=== PATIENT | female | born 1980 | race Caucasian/White ===

== ENCOUNTER 2020-06-15 13:35 | Outpatient (REF) | payer OTHER, SELFPAY ==
--- NOTE | 2020-06-15 | MM_ITS ---
EXAMINATION: MM DIAGNOSTIC DIGITAL BREAST TOMOSYNTHESIS, BILATERAL US DIAGNOSTIC ULTRASOUND BREAST, BILATERAL CLINICAL INFORMATION: 40-year-old with small palpable nodule upper outer left breast. Clinical exam also notes palpable fullness 9:00 and 12:00 position right breast. Family history breast cancer in maternal aunt. No known prior mammography. Patient notes prior history benign right breast biopsy years ago. The lifetime risk of breast cancer based on the Tyrer-Cuzick Model is 15%. COMPARISON: None (current study represents initial baseline exam). TECHNIQUE: Digital breast tomosynthesis is performed in both the craniocaudal and mediolateral oblique views along with computer-aided detection (CAD). Synthesized 2D images are generated from the tomosynthesis. Ultrasound left breast is targeted to the area of clinical concern 2:00 to 3:00 position. Patient is able to point to area of concern at time of imaging. Ultrasound right breast is targeted to the upper outer quadrant. Patient notes no palpable abnormality at time of imaging the right breast. Old breast are imaged using grayscale imaging and color Doppler without and with harmonics. FINDINGS: The breasts are heterogeneously dense, which may obscure small masses (ACR BI-RADS breast composition Category c). There is a smooth circumscribed oval nodule close to skin upper outer left breast at site of palpable abnormality measuring 0.6 x 0.5 cm. The right breast has biopsy clip marker mid upper inner quadrant. There is no significant masses seen in either breast or architectural abnormality. There are no abnormal calcifications. The axilla and skin contours are unremarkable. There is no skin thickening or coarsening of the Chris's ligaments. Ultrasound left breast demonstrates simple cyst at site of palpable concern 2:00 position 3 cm from nipple measuring 0.7 x 0.5 x 0.4 cm. There is increased through-transmission of sound and no associated color flow. Ultrasound right breast shows a cyst with some fine peripheral layering calcification 10:00 position measuring approximately 0.7 x 0.6 cm. There is increased through-transmission of sound and no associated color flow. There is no other cystic or solid mass or architectural abnormality. No focal duct ectasia. Results are discussed with the patient at time of visit. Patient should be managed based on the clinical impression. If there is still clinical concern, further evaluation may be considered with surgical consult. Decision to proceed with biopsy should be based on clinical grounds and degree of clinical concern. IMPRESSION: 1. No mammographic evidence of malignancy. 2. Simple cyst upper outer left breast at site of palpable concern measuring 0.7 cm. 3. Cyst upper outer right breast with benign finding layering calcification 0.7 cm. ASSESSMENT: BI-RADS 2: Benign RECOMMENDATION: 1. Patient should be managed based on the clinical impression. 2. Otherwise, routine annual screening mammography. This patient's information was entered into a reminder system with a target due date for their next mammogram.
== END 2020-06-15 13:36 | disposition home or self-care (01) ==
LOC: HO.MAMMO 13:35
PROVIDERS: Visit Provider Advanced Practice Midwife
DX: N63.10 Unspecified lump in the right breast, unspecified quadrant (principal); N63.21 Unspecified lump in the left breast, upper outer quadrant
CPT/HCPCS: 76642; 77062; 77066; 78013

== ENCOUNTER 2020-06-24 14:10 | Outpatient (REF) | payer OTHER, SELFPAY ==
--- NOTE | 2020-06-24 14:16 | US_ITS ---
EXAMINATION: US PELVIS ULTRASOUND CLINICAL INFORMATION: 40-year-old with excessive and frequent menstruation. LMP 3 weeks ago. Prior history . COMPARISON: None TECHNIQUE: Ultrasound of the pelvis is performed using both transabdominal and transvaginal transducers along with Doppler. Transvaginal imaging is performed due to inadequate visualization transabdominally. FINDINGS: Uterus: The uterus is anteverted and measures 12.4 x 5.2 x 6.3 cm. The double wall endometrial thickness is normal at 8 mm. No visible endometrial polyp. There is an oval area of subtle altered echogenicity 2.0 x 1.9 x 1.9 cm lower anterior uterine segment adjacent to probable small scar. This may represent a small subserous fibroid. There is no submucous fibroid demonstrated. Adnexa: Both ovaries are visualized. There is normal color flow to the adnexa. There is no ovarian torsion. There is no pelvic ascites or fluid collection. Right ovary measures 3.1 x 1.9 x 3.0 cm. Left ovary measures 5.0 x 3.1 x 3.8 cm. There is a small hemorrhagic cyst within the left ovary measuring only 1.9 x 1.6 x 1.6 cm. IMPRESSION: 1. Suspect small subserous fibroid 2.0 cm lower anterior uterine segment adjacent to small scar. No submucous fibroid demonstrated. 2. Normal endometrial double wall thickness 8 mm. No visible endometrial polyp. 3. Small left intraovarian hemorrhagic cyst under 2 cm. No significant adnexal mass. No pelvic ascites.
== END 2020-06-24 14:11 | disposition home or self-care (01) ==
LOC: HO.HMGCX 14:10
PROVIDERS: Visit Provider Advanced Practice Midwife
DX: N92.0 Excessive and frequent menstruation with regular cycle (principal)
CPT/HCPCS: 76830; 76856

== ENCOUNTER 2021-07-11 13:44 | Outpatient (REF) | payer OTHER, SELFPAY ==
--- NOTE | ~2021-07-11 | MM_ITS ---
EXAMINATION: MM SCREENING DIGITAL BREAST TOMOSYNTHESIS, BILATERAL CLINICAL INFORMATION: Screening. Asymptomatic. The lifetime risk of breast cancer based on the Tyrer-Cuzick Model is 17%. COMPARISON: Mammography: 06/15/2020 (baseline); bilateral targeted breast ultrasound 06/15/2020. TECHNIQUE: Digital breast tomosynthesis is performed in both the craniocaudal and mediolateral oblique views along with computer-aided detection (CAD). Synthesized 2D images are generated from the tomosynthesis. FINDINGS: The breasts are extremely dense, which lowers the sensitivity of mammography (ACR BI-RADS breast composition Category d). Breast tissue composition borders on heterogeneously dense. Parenchymal pattern is similar to baseline exam. There is no significant mass or architectural abnormality or abnormal calcifications. Biopsy marker again seen mid 3:00 right breast. There is interval benign coarse calcification mid upper outer right breast. The axilla and skin contours are unremarkable. MM/MM tomosynthesis screening BI IMPRESSION: No significant changes from prior baseline exam. ASSESSMENT: BI-RADS 2: Benign RECOMMENDATION: Routine annual mammography screening. This patient's information was entered into a reminder system with a target due date for their next mammogram.
== END 2021-07-11 13:45 | disposition home or self-care (01) ==
LOC: HO.MAMMO 13:44
PROVIDERS: Visit Provider Pediatrics
DX: Z12.31 Encounter for screening mammogram for malignant neoplasm of breast (principal)
CPT/HCPCS: 77063; 77067

== ENCOUNTER 2022-07-12 14:01 | Outpatient (REF) | payer OTHER, SELFPAY ==
--- NOTE | ~2022-07-12 | MM_ITS ---
EXAMINATION: MM SCREENING DIGITAL BREAST TOMOSYNTHESIS, BILATERAL CLINICAL INFORMATION: Screening. Asymptomatic. COMPARISON: Mammography: 07/11/2021, 06/15/2020 TECHNIQUE: Digital breast tomosynthesis is performed in both the craniocaudal and mediolateral oblique views along with computer-aided detection (CAD). Synthesized 2D images are generated from the tomosynthesis. FINDINGS: The breasts are heterogeneously dense, which may obscure small masses (ACR BI-RADS breast composition Category c). Parenchymal pattern is similar to prior studies. There is no developing density or architectural abnormality. There is biopsy clip marker again seen posterior medial right breast. There are benign coarse calcifications right breast mid upper outer quadrant. The axilla and skin contours are unremarkable. No significant changes. MM/MM tomosynthesis screening BI IMPRESSION: No mammographic evidence of malignancy. ASSESSMENT: BI-RADS 2: Benign RECOMMENDATION: Routine annual mammography screening. This patient's information was entered into a reminder system with a target due date for their next mammogram.
== END 2022-07-12 14:02 | disposition home or self-care (01) ==
LOC: HO.MAMMO 14:01
PROVIDERS: Visit Provider Pediatrics
DX: Z12.31 Encounter for screening mammogram for malignant neoplasm of breast (principal)
CPT/HCPCS: 77063; 77067

== ENCOUNTER 2023-05-28 15:37 | Outpatient (REF) | payer OTHER, SELFPAY ==
[2023-05-29 15:38] LABS: BV Int Neg Control Negative (Negative); BV Int Pos Control Positive (Positive)
[2023-05-31 02:59] LABS: HPV mRNA E6/E7 rflx Not Detected (Not Detected)
== END 2023-05-28 15:38 | disposition home or self-care (01) ==
LOC: HO.CHCLNP 15:37
PROVIDERS: Visit Provider Advanced Practice Midwife
DX: N89.8 Other specified noninflammatory disorders of vagina (principal); Z12.4 Encounter for screening for malignant neoplasm of cervix
CPT/HCPCS: 87086; 87480; 87510; 87624; 87660; 88142

== ENCOUNTER 2023-06-20 15:00 | Outpatient (REF) | payer MEDICAID, OTHER, SELFPAY ==
--- NOTE | ~2023-06-20 | US_ITS ---
EXAMINATION: US PELVIS CLINICAL INFORMATION: Fibroids, last menstrual period 06/06/2023. COMPARISON: 06/24/2020 TECHNIQUE: Ultrasound of the pelvis was performed using both transabdominal and transvaginal transducers along with Doppler. Transvaginal imaging was performed due to inadequate visualization transabdominally. FINDINGS: The uterus is anteverted, retroflexed, heterogeneous and measures 12.1 x 5.9 x 7.2 cm, volume 266.50 mL. Endometrial thickness is 1.25 cm. Redemonstration of oval area of subtle altered echogenicity in the anterior lower uterine segment measuring 1.9 x 1.9 x 2.0 cm, previously 2.0 x 1.9 x 1.9 cm. Differential considerations include focal lobulation of the uterine contour adjacent to the section scar versus atypical fibroid. Small amount of fluid identified in the region of the scar. Mild prominence of bilateral pelvic vasculature may represent pelvic congestion. No significant free fluid. Right ovary measures 3.4 x 1.9 x 2.5 cm, volume 8.31 mL on transvaginal images and measures 3.8 x 2.3 x 3.1 cm, volume 14.3 mL on transabdominal ultrasound images. 1.5 x 1.5 x 1.4 cm complex cyst with thick wall within the right ovary may represent a corpus luteum. Limited visualization due to bowel gas. Left ovary measures 2.7 x 2.4 x 2.1 cm, volume 7.1 mL on transvaginal ultrasound images and 3.0 x 1.8 x 2.0 cm, volume 5.4 mL on transabdominal ultrasound images. The left ovary is grossly unremarkable. Limited visualization due to bowel gas. US/US pelvic and transvaginal IMPRESSION: 1. No discrete fibroids. 2. Endometrium is echogenic with thickness of 1.25 cm. 3. Mild prominence of bilateral pelvic vasculature is characteristic of pelvic congestion. 4. Right ovarian 1.5 cm complex, thick-walled cyst is characteristic of a corpus luteum. This was not identified on the exam of 06/24/2020. There is no indication for follow up imaging at this time.
== END 2023-06-20 15:01 | disposition home or self-care (01) ==
LOC: HO.HMGCX 15:00
PROVIDERS: PCP Pediatrics; Visit Provider Advanced Practice Midwife
DX: D21.9 Benign neoplasm of connective and other soft tissue, unspecified (principal)
CPT/HCPCS: 76830; 76856

== ENCOUNTER 2023-07-17 15:31 | Outpatient (REF) | payer MEDICAID, OTHER, SELFPAY ==
--- NOTE | ~2023-07-17 | MM_ITS ---
EXAMINATION: MM SCREENING DIGITAL BREAST TOMOSYNTHESIS, BILATERAL CLINICAL INFORMATION: Screening. Asymptomatic. COMPARISON: Mammography: This study is compared with prior exams dating back to 2019. TECHNIQUE: Digital breast tomosynthesis is performed in both the craniocaudal and mediolateral oblique views along with computer-aided detection (CAD). Synthesized 2D images are generated from the tomosynthesis. FINDINGS: There are scattered areas of fibroglandular density (ACR BI-RADS breast composition Category b). There are no significant masses, abnormal calcifications, or other abnormalities. There is a tissue marker in the right breast from prior benign percutaneous biopsy. MM/MM tomosynthesis screening BI IMPRESSION: No mammographic evidence of malignancy. ASSESSMENT: BI-RADS BI-RADS 2 - Benign Findings RECOMMENDATION: Routine annual mammography screening. 1 year F/U This examination should not preclude the clinical evaluation of a suspicious palpable abnormality. This patient's information was entered into a reminder system with a target due date for their next mammogram.
== END 2023-07-17 15:32 | disposition home or self-care (01) ==
LOC: HO.MAMMO 15:31
PROVIDERS: PCP Pediatrics; Visit Provider Pediatrics
DX: Z12.31 Encounter for screening mammogram for malignant neoplasm of breast (principal)
CPT/HCPCS: 77063; 77067

== ENCOUNTER → 2023-07-17 15:45 | Outpatient (BNV) | payer SELFPAY | PROVIDERS: PCP Pediatrics; Visit Provider Radiology Diagnostic Radiology | DX: Z12.31 Encounter for screening mammogram for malignant neoplasm of breast (principal) | CPT/HCPCS: 77063; 77067 ==

== ENCOUNTER 2023-08-06 15:08 | Outpatient (REF) | payer MEDICAID, OTHER, SELFPAY ==
[2023-08-07 03:55] LABS: CT PCR NOT DETECTED (Not Detect.); NG PCR NOT DETECTED (Not Detect.)
== END 2023-08-06 15:09 | disposition home or self-care (01) ==
LOC: HO.CHCLNP 15:08
PROVIDERS: Visit Provider Advanced Practice Midwife
DX: Z11.3 Encounter for screening for infections with a predominantly sexual mode of transmission (principal)
CPT/HCPCS: 0353U

== ENCOUNTER 2023-11-07 11:31 | Outpatient (REF) | payer MEDICAID, OTHER, SELFPAY ==
[2023-11-07 15:01] LABS: TSH reflex Free T4 0.72 uIU/mL (0.32-4.0)
[2023-11-08 04:37] LABS: HBS Num1 190.45 mIU/mL (0-7.99); HBc Num1 0.08 S/CO (0.00-0.79); HBsAGNum1 0.39 S/CO (0.00-0.99); HIV AB/AG Nonreactive (Nonreactive); HIV Num 1 0.06 S/CO (0.00-0.99); Hepatitis B Core Antibody Nonreactive (Nonreactive); Hepatitis B Surface Antigen Negative (Negative); ~HepC Num1 0.09 S/CO (0.00-0.79); ~Hepatitis B Surface Antibody REACTIVE (Nonreactive); ~Hepatitis C Antibody Nonreactive (Nonreactive)
[2023-11-08 04:56] LABS: Hepatitis A Antibody IgM 0.19 Index (0-0.79); ~Hepatitis A Antibody IgM Nonreactive (Nonreactive)
[2023-11-08 11:24] LABS: RPR Rapid Plasma Reagin NON-REACTIVE (NON-REACTIVE)
[2023-11-08 19:24] LABS: C. trachomatis RNA TMA NOT DETECTED (NOT DETECTED); Candida glabrata RNA DETECTED (NOT DETECTED); Candida species RNA DETECTED (NOT DETECTED); N. gonorrhoeae RNA TMA NOT DETECTED (NOT DETECTED); Trichomonas vaginalis RNA NOT DETECTED (NOT DETECTED)
== END 2023-11-07 11:32 | disposition home or self-care (01) ==
LOC: HO.CHCLDS 11:31
PROVIDERS: Visit Provider Pediatrics
DX: Z11.3 Encounter for screening for infections with a predominantly sexual mode of transmission (principal)
CPT/HCPCS: 36415; 81513; 84443; 86592; 86704; 86706; 86709; 86803; 87340; 87389; 87481; 87491; 87591; 87661

== ENCOUNTER 2023-12-13 10:08 | Outpatient (REF) | payer MEDICAID, OTHER, SELFPAY ==
[2023-12-13 15:10] LABS: Alanine Aminotransferase 12 U/L (0-31); Albumin Level 4.2 g/dL (3.5-5.0); Alkaline Phosphatase 33 U/L (39-117); Aspartate Amino Transferase 15 U/L (5-31); Bilirubin Direct 0.3 mg/dL (0.0-0.5); Bilirubin Total 0.9 mg/dL (0.0-1.0); Total Protein 7.4 g/dL (6.5-8.0)
== END 2023-12-13 10:09 | disposition home or self-care (01) ==
LOC: HO.CHCLDS 10:08
PROVIDERS: Visit Provider Pediatrics
DX: F10.982 Alcohol use, unspecified with alcohol-induced sleep disorder (principal); F43.29 Adjustment disorder with other symptoms
CPT/HCPCS: 36415; 80076

== ENCOUNTER 2024-02-11 15:54 | Outpatient (REF) | payer MEDICAID, OTHER, SELFPAY ==
[2024-02-12 05:17] LABS: Estimated Average Glucose 160 mg/dL; Hemoglobin A1c % 7.2 % (<6.0)
== END 2024-02-11 15:55 | disposition home or self-care (01) ==
LOC: HO.CHCLDS 15:54
PROVIDERS: Visit Provider Pediatrics
DX: E10.9 Type 1 diabetes mellitus without complications (principal)
CPT/HCPCS: 36415; 83036

== ENCOUNTER 2024-06-02 17:50 | Outpatient (REF) | payer MEDICAID, OTHER, SELFPAY ==
[2024-06-03 11:51] LABS: CT PCR NOT DETECTED (Not Detect.); NG PCR NOT DETECTED (Not Detect.)
[2024-06-03 13:32] LABS: Bacterial Vaginosis PCR NEGATIVE (Negative); Candida Group PCR DETECTED (Not Detect); Candida glab krusei PCR DETECTED (Not Detect); Trichomonas vaginalis PCR NOT DETECTED (Not Detect)
== END 2024-06-02 17:51 | disposition home or self-care (01) ==
LOC: HO.LNP 17:50
PROVIDERS: Visit Provider Advanced Practice Midwife
DX: N93.9 Abnormal uterine and vaginal bleeding, unspecified (principal); Z11.3 Encounter for screening for infections with a predominantly sexual mode of transmission
CPT/HCPCS: 0352U; 87491; 87591

== ENCOUNTER 2024-06-17 15:17 | Outpatient (REF) | payer MEDICAID, OTHER, SELFPAY ==
--- NOTE | ~2024-06-17 | US_ITS ---
EXAMINATION: US PELVIS CLINICAL INFORMATION: Abnormal uterine bleeding with IUD COMPARISON: Pelvic ultrasound 06/20/2023 TECHNIQUE: Ultrasound of the pelvis is performed using both transabdominal and transvaginal transducers along with Doppler. Transvaginal imaging is performed due to inadequate visualization transabdominally. FINDINGS: Uterus: The uterus is anteverted and measures 11.5 x 5.2 x 6.1 cm. The double wall endometrial thickness could not be assessed as it was obscured by the IUD seen in good location in the endometrial canal. Some fluid can be seen within the endocervical canal. Adnexa: Both ovaries are visualized. There is normal color flow to the adnexa. There is no ovarian torsion. There is no pelvic ascites or fluid collection. There are some prominent veins seen in the adnexa on the right which could be secondary to ovarian vein reflux Right ovary measures 4.7 x 3.8 x 4.2 cm for a volume of 39 mL and contains a 3.9 cm benign simple cyst. Left ovary measures 3.0 x 2.7 x 2.1 cm for a volume of 8.8 mL and appears unremarkable with some small follicular cysts. US/US pelvic and transvaginal IMPRESSION: 1. IUD in good location. 2. 3.9 cm benign simple right ovarian cyst. No follow-up is needed. 3. Prominent veins in the right adnexa could be secondary to ovarian vein reflux. Electronically signed by: Warren Cadena MD 06/17/2024 07:46 PM EDT
== END 2024-06-17 15:18 | disposition home or self-care (01) ==
LOC: HO.HMGCX 15:17
PROVIDERS: PCP Pediatrics; Visit Provider Advanced Practice Midwife
DX: Z30.431 Encounter for routine checking of intrauterine contraceptive device (principal); N93.9 Abnormal uterine and vaginal bleeding, unspecified
CPT/HCPCS: 76830; 76856

== ENCOUNTER 2024-07-22 15:13 | Outpatient (REF) | payer MEDICAID, OTHER, SELFPAY ==
--- NOTE | ~2024-07-22 | MM_ITS ---
EXAMINATION: MM SCREENING DIGITAL BREAST TOMOSYNTHESIS, BILATERAL CLINICAL INFORMATION: Screening. Asymptomatic. COMPARISON: Mammography: Comparison is made with available priors TECHNIQUE: Digital breast mammography with tomosynthesis is performed in both the craniocaudal and mediolateral oblique views along with computer-aided detection (CAD). FINDINGS: The breasts are heterogeneously dense, which may obscure small masses (ACR BI-RADS breast composition Category c). Right marker clip. There are no significant masses, abnormal calcifications, or other abnormalities. MM/MM tomosynthesis screening BI IMPRESSION: No mammographic evidence of malignancy. ASSESSMENT: BI-RADS BI-RADS 2 - Benign Findings RECOMMENDATION: Routine annual mammography screening. 1 year F/U This examination should not preclude the clinical evaluation of a suspicious palpable abnormality. This patient's information was entered into a reminder system with a target due date for their next mammogram. Electronically signed by: Kelley Mckeon DO 07/31/2024 08:45 AM [place]
== END 2024-07-22 15:14 | disposition home or self-care (01) ==
LOC: HO.MAMMO 15:13
PROVIDERS: Visit Provider Pediatrics
DX: Z12.31 Encounter for screening mammogram for malignant neoplasm of breast (principal)
CPT/HCPCS: 77063; 77067

== ENCOUNTER → 2024-07-22 15:30 | Outpatient (BNV) | payer MEDICAID, SELFPAY | PROVIDERS: Visit Provider Internal Medicine | DX: Z12.31 Encounter for screening mammogram for malignant neoplasm of breast (principal) | CPT/HCPCS: 77063; 77067 ==

== ENCOUNTER 2024-09-15 14:16 | Outpatient (REF) | payer MEDICAID, OTHER, SELFPAY | END 2024-09-15 14:17 | disposition home or self-care (01) | LOC: HO.CHCLNP 14:16 | PROVIDERS: Visit Provider Family Medicine | DX: N92.4 Excessive bleeding in the premenopausal period (principal) | CPT/HCPCS: 88305 ==

== ENCOUNTER 2024-12-24 08:48 | Outpatient (REF) | payer MEDICAID, OTHER, SELFPAY ==
--- OUTSIDE RECORDS SUMMARY | 2024-12-24 09:30 | XMS_ITS | Encounter Summary ---
Author Organization [employer] Address [address] [place] [address] Care Team Providers Care Inventory Control Analyst Name Role Phone Renee Garvey MD Primary Care Provider [phone] Reason for Visit * Reason Onset Date Comments Medication Question 10/23/2023 Encounter Details Date Type Department Care Team ([facility] Contact Info) Description 10/23/2023 Telephone [facility] PEDS [address] [place] [address] Renee Garvey MD [address] [place] [address] Medication Question Social History Tobacco Use Types Packs/Day Years Used Date Smoking Tobacco: Never Passive Smoke Exposure: Never Smokeless Tobacco: Never Alcohol Use Standard Drinks/Week Comments Yes 3 (1 standard drink = 0.6 oz pur e alcohol) Alcohol Answer Date Recorded How often do you have a drink containing alcohol ? 2 12/13/2022 How many drinks containing a lcohol do you have on a typical day when you are drinking? 1 12/13/2022 How often do you have six or more drinks on one occasion? 1 12/13/2022 Depression Answer Date Recorded Patient Health Questionnaire-9 Score 6 12/13/2022 Housing Stability Answer Date Recorded What is your housing situation today? I have housing today, but I am worried about losing housing in the future 06/24/[address] you li ve. Do you have problems with any of the following? None of the above 06/24/2023 Food Insecurity Answer Date Recorded Within the past 12 months, y ou worried that your food would run out before you got money to buy more: Never True 06/24/2023 Within the past 12 months,th e food you bought just didn't last and you didn't have enough money to get more: Never True Transportation Answer Date Recorded In the past 12 months, has l ack of transportation kept you from medical appts, meetings, work or from getting things needed for daily living? No 06/24/2023 Utilities Answer Date Recorded In the past 12 months, has t he [employer], gas, oil or water [employer] threatened to shut off services in your home? No 06/24/2023 Depression Answer Date Recorded Patient Health Questionnaire-2 Score 2 12/13/2022 Comments No Sex and Gender Information Value Date Recorded Sex Assigned at Female 07/09/2022 10:18 AM EDT Legal Sex Female 10:18 AM EDT Gender Identity Female 07/09/2022 10:18 AM EDT Sexual Orientation Straight 07/09/2022 10 :18 AM EDT documented as of this encounter Miscellaneous Notes * Telephone Encounter - Jonathan Persaud - 10/24/2023 9:55 AM EST Tc from pt calling in regards to message prior. * Telephone Encounter - Cassie Waller RN - 10/24/2023 9:28 AM EST TC X1 to pt regarding message below. LVM to return call to nurses. * Telephone Encounter - Celeste Thompson - 10/23/2023 2:35 PM EST Tc from pt calling in requesting if pcp can prescribe sleeping medication . PT did came in today and forgot to ask . documented in this encounter Plan of Treatment Upcoming Encounters Date Type Department Care Team (Late st Contact Info) Description 02/04/2025 3:15 PM EDT Office Visit [facility] MED & PEDS [address], [place] [id number] Renee Garvey MD [address] [place] [address] documented as of this encounter Visit Diagnoses Not on filedocumented in this encounter Additional Health Concerns Assessment Noted Time PHQ-9 Depression Total Score: 6 12/14/19 23 2:22 PM EDT documented as of this encounter Care Teams Inventory Control Analyst Relationship Specialty Start Date End Date Renee Garvey MD [address] [place] [address] PCP - General Family Medicine 09/09/18 documented as of this encounter
--- OUTSIDE RECORDS SUMMARY | 2024-12-24 09:30 | XMS_ITS | Clinical Summary ---
Author Organization [employer] Address [address] [place] [address] [address] [place] [address] Care Team Providers Care Appliance Servicer Name Role Phone Renee Garvey MD Primary Care Provider [phone] Allergies No known active allergies Medications * This document contains information received from the source organization and may not represent a complete record from that organization. glucose blood (FREESTYLE LITE) test strip 1 strip every 6 (six) hours. 11/24/19 20 Active traZODone (Desyrel) 100 MG tablet TAKE ONE TABLET AT BEDTIME 30 tablet 5 06/15/20 24 Active FLUoxetine (PROzac) 20 MG capsule TAKE ONE CAPSULE EVERY MORNING 30 capsule 5 06/26/20 24 Active busPIRone (Buspar) 5 MG tablet TAKE ONE TABLET TWICE DAILY 60 tablet 5 09/07/20 24 Active doxycycline (Monodox) 100 MG capsule One twice a day for 14 days. Take with at least 8 ounces (large glass) of water, do not lie down for 30 minutes after 28 capsule 09/21/19 25 Active Continuous Glucose Sensor (FreeStyle Agnieszka 2 Sensor) misc CHANGE EVERY 14 DAYS, CHECK BLOOD GLUCOSE 4 TIMES A DAY 2 each 2 10/13/19 25 Active naltrexone (Depade) 50 MG tabletIndicat ions:H/O ETOH abuse TAKE ONE TABLET EVERY MORNING 30 tablet 1 12/05/19 25 Active levothyroxine (Synthroid, Levoxyl) 125 MCG tablet TAKE ONE TABLET EVERY DAY 90 tablet 3 12/08/19 25 Active insulin glargine (Lantus) 100 UNIT/ML injection inject 25 units by Subcutaneous route AT BEDTIME 10 mL 11 12/08/19 25 Active Insulin Lispro (HumaLOG) 100 UNIT/ML solution Inject 0.1-0.15 mL (10-15 Units) under the skin 3 times daily. 10 mL 12/08/19 25 Active levothyroxine (Synthroid, Levoxyl) 125 MCG tablet take 1 Tablet by Oral route once a day 90 tablet 3 11/27/19 24 025 Discontinued Insulin Lispro (HumaLOG) 100 UNIT/ML solution Inject 10-15 Units under the skin 3 times daily. 10 mL 11 11/27/19 24 025 Discontinued(R eorder (will not trigger notification to Pharmacy)) insulin glargine (Lantus) 100 UNIT/ML injection inject 25 units by Subcutaneous route AT BEDTIME 10 mL 11/27/19 24 025 Discontinued(R eorder (will not trigger notification to Pharmacy)) naltrexone (Depade) 50 MG tablet TAKE ONE TABLET EVERY MORNING 30 tablet 1 09/07/20 24 025 Discontinued Active Problems Problem Noted Date Diagnosed Date Pelvic pain in female 07/21/2024 Severe anxiety 10/23/2023 Adjustment disorder with mixed emotional feature s 12/13/2022 Type I diabetes mellitus, well controlled 2015 Chronic anxiety 09/15/2015 Premenopausal menorrhagia 09/15/2015 Assessment & Plan (09/15/2024 9:45 AM EST): Patient tolerate procedure well. Will send sample to pathology. Followup results. RTC prn. Acquired hypothyroidism 02/25/2012 Insomnia 02/25/2012 Anxiety 02/25/2012 Encounters Date Type Department Care Team Description 12/17/2024 9:15 AM EDT Office Visit [facility] [address] [place] [address] Renee Garvey MD Type I diabetes mellitus, well controlled (CMS/[facility]) (Primary Dx); H/O ETOH abuse; Primary insomnia; Acquired hypothyroidism; Chronic anxiety 12/17/2024 Travel 12/16/[address] [facility] D[facility] [address] [place] [address] Leonila Garcia 12/07/2024 Refill [facility] [address] [place] [address] Renee Garvey MD 12/07/[address] [facility] [address] [place] [address] Renee Garvey MD 12/05/[address] [facility] [address] [place] [address] Renee Gavrey MD 12/04/2024 Refill [facility] [address] [place] [address] Renee Garvey MD H/O ETOH abuse 11/18/2024 3:00 PM EDT Office Visit [facility] [address] [place] [address] Júnior, Teresa, OD Diabetes type 1, no ocular involvement (CMS/HCC) (Primary Dx); Dry eye syndrome of both eyes; Suspicious optic nerve cupping of both eyes; Presbyopia 11/18/2024 Travel 11/12/2024 Telephone [facility] [address] [place] [address] Renee Garvey MD Nurse Triage 11/06/2024 2:00 PM EST Office Visit [facility] [address] [place] [address] April Meltno 10/20/2024 2:45 PM EST Office Visit [facility] [address] [place] [address] April Melton 10/12/2024 Telephone [facility] [address] [place] [phone] Jo Marti, RN Results 10/12/[address] [facility] [address] [place] [address] Renee Garvey MD 10/12/2024 Refill [facility] [address] [place] [address] Renee Garvey MD 10/08/2024 8:00 AM EST Office Visit [facility] [address] [place] [address] April Melton 10/01/2024 Orders Only [facility] [address] [place] [address] Renee Garvey MD 10/01/[address] [facility] [address] [place] [address] Renee Garvey MD triage 09/25/2024 3:00 PM EST Office Visit [facility] [address] [place] [address] April Melton 09/25/2024 Orders Only [facility] [address] [place] [address] Quang Cunningham CNM from Last 3 Months Immunizations Name Administration Dates Next Due Influenza injectable quadriv alent IIV4 with preservative 06/26/2019,06/13/2018,06/04/2016 Influenza injectable quadriv alent preservative free 05/12/2021,05/24/2020,05/27/2017 Influenza, IIV3, injectable 06/15/2014, 3 Influenza, Split (incl. xochitl fied surface antigen) 05/28/2012 Influenza, seasonal, injecta ble, preservative free 05/25/2015,08/10/2013 Pneumococcal Polysaccharide PPSV23 12/23/2018 Tdap 11/07/2017,11/02/2013 Social History Tobacco Use Types Packs/Day Years Used Date Smoking Tobacco: Never Passive Smoke Exposure: Never Smokeless Tobacco: Never Tobacco Cessation:Counseling Given: Not Answered Alcohol Use Standard Drinks/Week Comments Not Currently 3 (1 standard drink = 0.6 oz [...] the past 12 months, has t he electric, gas, oil or water company threatened to shut off services in your home? No 06/24/2023 Depression Answer Date Recorded Patient Health Questionnaire-2 Score 2 12/13/2022 Comments No Sex and Gender Information Value Date Recorded Sex Assigned at Female 07/09/2022 10:18 AM EDT Legal Sex Female 10:18 AM EDT Gender Identity Female 07/09/2022 10:18 AM EDT Sexual Orientation Straight 07/09/2022 10 :18 AM EDT Last Filed Vital Signs Vital Sign Reading Time Taken Comments Blood Pressure 138/83 12/17/2024 9:26 AM EDT Pulse 88 12/17/2024 9:26 AM EDT Temperature 36.8 ??C (98.3 ??F) 12/17/2024 9:26 AM ED T Respiratory Rate 16 12/17/2024 9:26 AM EDT Oxygen Saturation 98% 12/17/2024 9:26 AM EDT Inhaled Oxygen Concentration - - Weight 63.5 kg (140 lb) 12/17/2024 9:26 AM EDT Height 170.2 cm (5' 7 ) 12/17/2024 9:26 AM EDT Body Mass Index 21.93 12/17/2024 9:26 AM EDT Plan of Treatment Upcoming Encounters Date Type Department Care Team ([facility] st Contact Info) Description 02/04/2025 3:15 PM EDT Office Visit [facility] [address] [place], [place] [phone] Renee Garvey MD [address] [place] [phone] Health Maintenance Due Date Last Done Comments Diabetes: Foot Exam 1991 Alcohol/Substance Use Screening 1993 Hepatitis B Vaccines (1 of 3 - 19+ 3-dose series) 02/29/2000 Pneumococcal Vaccine: Pediatrics (0 to 5 Years) and At-Risk Patients (6 to 49) Years) (2 of 2 - PCV) 12/24/2019 12/23/2018 Diabetes: Urine Protein Screening 02/16/2023 02/16/2022, 07/13/2020 Depression Screening 12/14/2023 12/13/2022, 12/14/19 SDOH Screening 12/14/2023 12/13/2022 Lipid Panel 12/28/2023 12/27/2022, 02/07, 07/13/2020 COVID-19 Vaccine ( season) 2024 10/20/2021, 01/23/2021, 01/02/2021 Influenza Vaccine (#1) 2024 , 05/24/2020, 06/26/2019, Additional history exists Dental Oral Exam 12/16/2024 06/16/2024, 09/25/2022 Dental Prophylaxis 12/16/2024 06/16/2024, 09/25/2022 Diabetes: Hemoglobin A1C 03/18/2025 025, 02/11/2024, 10/23/2023, Additional history exists Family Planning (PISQ) 06/02/2025 06/02/2024 Dental X-Ray: Bitewings 06/17/2025 06/16/2024, 09/25 Tobacco Screening 12/17/2025 12/17/2024 Pap Smear 05/28/2026 05/28/2023, 05/24/2020 Mammogram 07/22/2026 07/22/2024, 1104/2023, 07/12/2022, Additional history exists Eye Exam 11/18/2026 11/18/2024, 11/07, 11/18/2024, Additional history exists Dental X-Ray: Full Mouth 06/17/2027 06/16/2024 DTaP/Tdap/Td Vaccines (3 - Td or Tdap) 11/08/2027 11/07/2017, 11/02/2013 Cervical Cancer Screening 05/28/2028 HPV/Cotest 05/28/2028 05/28/2023, 05/24/2020 Zoster Vaccines (1 of 2) 2031 RSV Patients and Patients Aged 60 years or older (1 - 1-dose 75+ series) 02/29/2056 HIV Screening Completed 11/07/2023, 06/23/2021 Hepatitis C Screening Completed 11/07/2023 HIB Vaccines Aged Out No longer eligi ble based on patient's age to complete this topic HPV Vaccines Aged Out No longer eligi ble based on patient's age to complete this topic Hepatitis A Vaccines Aged Out No long er eligible based on patient's age to complete this topic IPV Vaccines Aged Out No longer eligi ble based on patient's age to complete this topic Meningococcal Vaccine Aged Out No kenrick sue eligible based on patient's age to complete this topic RSV under 20 months Aged Out No longe r eligible based on patient's age to complete this topic Rotavirus Vaccines Aged Out No longer eligible based on patient's age to complete this topic Procedures Procedure Name Priority Date/Time Associated Diagnosis Comments POCT GLYCATED HEMOGLOBIN, TOTAL Routine 12/17/2024 9:40 AM EDT Type I diabetes mellitus, well controlled ([facility]) POCT GLUCOSE Routine 12/17/2024 9:40 AM EDT Type I diabetes mellitus, well controlled (CMS/[facility]) OCT, OPTIC NERVE - OU - BOTH EYES Routine 11/18/2024 3:27 PM EDT Suspicious optic nerve cupping of both eyes CASE PRESENTATION, DETAILED AND EXTENSIVE TREATMENT PLANNING Routine 11/06/2024 2:00 PM EST 20,19,18,29,30 MANDIBULAR PARTIAL DENTURE - RESIN BASE (INCLUDING, RETENTIVE/CLASPING MATERIALS, RESTS, AND TEETH) Routine 11/06/2024 2:00 PM EST CASE PRESENTATION, DETAILED AND EXTENSIVE TREATMENT PLANNING Routine 10/20/2024 2:45 PM EST WAX TRY IN Routine 10/20/2024 2:45 PM EST DENTURE IMPRESSION Routine 10/08/2024 8: 00 AM EST CASE PRESENTATION, DETAILED AND EXTENSIVE TREATMENT PLANNING Routine 10/08/2024 8:00 AM EST BITE REGISTRATION Routine 10/08/2024 8:0 0 AM EST MYCOPLASMA/UREAPLASMA PANEL Routine 09/25/2024 3:40 PM EST NO CHARGE VISIT Routine 09/25/2024 3:00 PM EST BI MAMMOGRAM SCREENING TOMOSYNTHESIS BILATERAL Routine 07/22/2024 3:20 PM EST PROPHYLAXIS - ADULT Routine 06/16/2024 2 :00 PM EDT INTRAORAL - COMPLETE SERIES OF RADIOGRAPHIC IMAGES Routine 06/16/2024 2:00 PM EDT PERIODIC ORAL EVALUATION - ESTABLISHED PATIENT Routine 06/16/2024 2:00 PM EDT HEPATITIS PANEL, GENERAL Routine 11/07/2023 11:33 AM EST Routine screening for STI (sexually transmitted infection) HIV 1/2 ANTIGEN/ANTIBODY, FOURTH GENERATION W/RFL Routine 11/07/2023 11:33 AM EST Routine screening for STI (sexually transmitted infection) HPV MRNA E6/E7 REFLEX TO HPV 16, 18/45 Routine 05/28/2023 12:55 PM EDT PAP SMEAR Routine 05/28/2023 12:55 PM EDT LIPID PANEL, STANDARD Routine 12/27/2022 8:31 AM EDT Type 1 diabetes mellitus without complication (CMS/HCC) ALBUMIN, RANDOM URINE W/CREATININE Routine 02/16/2022 8:33 AM EDT from Last 3 Months or Most Recently Relevant to Health Maintenance Results * (ABNORMAL) POCT HGB A1C (12/17/2024 9:40 AM EDT) Hemoglobin A1C 8.2(A) 4.0 - 6.0 % QC Media Lot # [id number] Lot# Expiration Date Blood 12/17/2024 9:40 AM EDT Renee Garvey MD POINT OF CARE TEST ENTER/EDIT ORDERABLES Final Result * (ABNORMAL) POCT Glucose (12/17/2024 9:40 AM EDT) Pathologist [facility] Glucose Blood, POC 351(A) 60 - 200 mg/dL QC Media Lot # [id number] Lot# Expiration Date Blood Capillary blood specimen / Unknown 12/17/2024 9:40 AM EDT Renee Garvey MD POINT OF CARE TEST ENTER/EDIT ORDERABLES Final Result * (ABNORMAL) Mycoplasma/Ureaplasma??Panel (09/25/2024 3:40 PM EST) Pathologist [facility] Sureswab(R), Mycoplasma Hominis, Real-Time Pcr NOT DETECTED NOT DETECTED [facility] Comment:Methodology: Real-Ti me PCR This test was developed and its analytical performance characteristics have been determined by [employer] It has not been cleared or approved by FDA. This assay has been validated pursuant to the CLIA regulations and is used for clinical purposes.See Note 1THIS TEST WAS PERFORMED AT:[employer] [id number] [place] [address]DXQXFDUNG MCKINNEY MD,PHD,DIONE Mycoplasma Genitalium, rRNA,TMA NOT DETECTED NOT DETECTED [facility] Comment:THIS TEST WAS PERFOR MED AT:[employer] [id number] [facility] [place] [address]VQKEBDUNG MCKINNEY MD,PHD,DIONE U. Parvum DNA DETECTED(A ) NOT DETECTED [facility] Comment:See Note 1 U. Urealyticum DNA NOT DETECTED NOT DETECTED [facility] Comment:Methodology: Real-Ti me PCR This test was developed and its analytical performance characteristics have been determined by [employer] It has not been cleared or approved by FDA. This assay has been validated pursuant to the CLIA regulations and is used for clinical purposes.See Note 1Note 1This test was developed and its analytical performancecharacteristics have been determined by [employer]. It has not been cleared or approved by theA. This assay has been validated pursuant to the CLIAregulations and is used for clinical purposes.THIS TEST WAS PERFORMED AT:[employer] [id number] [place] [address]YSRTRDUNG MCKINNEY MD,PHD,DIONE 09/25/2024 3:40 PM EST 09/25/2024 5:50 PM EST us Quang Cunningham CN LAB MICROBIOLOGY - GENERA L ORDERABLES Final Result [facility] [address] [place] [address] [phone] * BI Mammogram Screening Tomosynthesis Bilateral (07/22/2024 3:20 PM EST) Anatomical Region Laterality Modality Breast Bilateral Mammography 07/22/2024 3:20 PM EST Narrative 07/31/2024 8:49 AM EST ? [facility] ? [address] ?[place] [address] ? Mammography Report ? Signed ? Patient: Maria Doloreswsesteban,Korin ?MR#: [id number] ?? [id number] ? : 1980 ?Acct:[id number] ? Age/Sex: 44 / F ?ADM Date: 11/13/24 ? Loc: HO.MAMMO ? Attending Dr: Renee Garvey MD ? Ordering Physician: Renee Garvey MD ?Results: 2Be ?? nign Findings ? Date of Service: 07/22/24 ?Follow Up: 1 Year From Orig ?? inal Mammogram ? Procedure(s): MM tomosynthesis screening BI ?? Accession Number(s): [id number] ? cc: Renee Garvey MD ? EXAMINATION: ?? MM SCREENING DIGITAL BREAST TOMOSYNTHESIS, BILATERAL ? CLINICAL INFORMATION: ? Screening. Asymptomatic. ? COMPARISON: ?? Mammography: Comparison is made with available priors ? TECHNIQUE: ?? Digital breast mammography with tomosynthesis is performed in both the ?? craniocaudal and mediolateral oblique views along with computer-aided ?? detection (CAD). ? FINDINGS: ?? The breasts are heterogeneously dense, which may obscure small masses ?? (ACR BI-RADS breast composition Category c). ?? Right marker clip. ?? There are no significant masses, abnormal calcifications, or other ?? abnormalities. ? MM/MM tomosynthesis screening BI ?? IMPRESSION: ?? No mammographic evidence of malignancy. ? ASSESSMENT: ? BI-RADS BI-RADS 2 - Benign Findings ? RECOMMENDATION: ?? Routine annual mammography screening. ? 1 year F/U ? This examination should not preclude the clinical evaluation of a ?? suspicious palpable abnormality. ? This patient's information was entered into a reminder system with a ?? target due date for their next mammogram. ? Electronically signed by: ??Kelley Mckeon DO ??07/31/2024 08:45 AM EST ?? RP ? Dictated By: ?Kelley Mckeon DO ? Signed By: ?<Electronically signed by Kelley Mckeon, DO in OV> ? 07/31/24 0845 ? DD/ 1520 ? TD/TT: 07/22/24 1530 ? Traffic Enumerator: ? Procedure Note Donotuseinterpreter, Image - 07/31/2024 [facility] [address] [place] [address] Mammography Report Signed Patient: Daisy DuttonynaMR#: [id number] : 1980Acct:[id number] Age/Sex: 44 / FADM Date: 07/22/24 Loc: HO.MAMMO Attending Dr: Renee Garvey MD Ordering Physician: Renee Garvey MDResults: 2Be nign Findings Date of Service: 07/22/24Follow Up: 1 Year From Orig inal Mammogram Procedure(s): MM tomosynthesis screening BI Accession Number(s): [id number] cc: Renee Garvey MD EXAMINATION: MM SCREENING DIGITAL BREAST TOMOSYNTHESIS, BILATERAL CLINICAL INFORMATION: Screening. Asymptomatic. COMPARISON: Mammography: Comparison is made with available priors TECHNIQUE: Digital breast mammography with tomosynthesis is performed in both the craniocaudal and mediolateral oblique views along with computer-aided detection (CAD). FINDINGS: The breasts are heterogeneously dense, which may obscure small masses (ACR BI-RADS breast composition Category c). Right marker clip. There are no significant masses, abnormal calcifications, or other abnormalities. MM/MM tomosynthesis screening BI IMPRESSION: No mammographic evidence of malignancy. ASSESSMENT: BI-RADS BI-RADS 2 - Benign Findings RECOMMENDATION: Routine annual mammography screening. 1 year F/U This examination should not preclude the clinical evaluation of a suspicious palpable abnormality. This patient's information was entered into a reminder system with a target due date for their next mammogram. Electronically signed by: Kelley Mckeon DO 07/31/2024 08:45 AM EST Dictated By: Kelley Mckeon DO Signed By: <Electronically signed by Kelley Mckeon DO in OV> 07/31/24 0845 DD/ 1520 TD/TT: 07/22/24 1530 Traffic Enumerator: us Renee Garvey MD IMG BI PROCEDURES Final Resul t * Hepatitis A,B,C Profile (11/07/2023 11:33 AM EST) Hepatitis A IgM Nonreactive Nonreactive [facility] Comment:IgM antibodies to SHAW V not detected; does not exclude earlyacute or recovered HAV infection. ~Hepatitis B Surface Antibody REACTIVE Nonreactive [facility] Comment:REACTIVE: > 11.99 mI U/mL Hepatitis B Core Antibody Nonreactive Nonreactive [facility] Hepatitis C Antibody Nonreactive Nonreactive [facility] Comment:Antibodies to HCV no t detected; does not exclude early acuteHCV infection. Hepatitis B Surface Ag Negative Negative [facility] Blood Venous blood specimen / Unknown 11/07/2023 11:33 AM EST 11/07/2023 2:03 PM EST us Renee Garvey MD LAB BLOOD ORDERABLES Final Re sult [facility] [address] [place] [phone] * HIV-1/2 Antigen and Antibodies, Fourth Generation, with Reflexes (11/07/2023 11:33 AM EST) HIV AB/AG Nonreactive Nonreactive [facility] Comment:HIV-1 p24 Ag and/or HIV-1/HIV-2 Ab not detected.A test result that is nonreactive does not exclude thepossibility of exposure to or infection with HIV-1 and/orHIV-2. Nonreactive results in this assay for individualswith prior exposure to HIV-1 and/or HIV-2 may be due toantigen and antibody levels that are below the limit ofdetection of this assay.The [employer] HIV Ag/Ab Combo assay result andsupplemental assay results should be interpreted inconjunction with the patient's clinical presentation,history and other laboratory results. If the results areinconsistent with clinical evidence, additional testing issuggested to confirm the result. Blood Venous blood specimen / Unknown 11/07/2023 11:33 AM EST 11/07/2023 2:03 PM EST us Renee Garvey MD LAB BLOOD ORDERABLES Final Re sult [facility] [address] [place] [address] [phone] * HPV mRNA E6/E7 w/Reflex to HPV Genotypes 16, 18/45 (05/28/2023 12:55 PM EDT) HPV nRNA E6/E7 Not Detected Not Detected [facility] Comment:Methodology: Transcr iption-Mediated AmplificationThis assay detects E6/E7 viral messenger RNA (mRNA) from 14high-risk HPV types (16,18,31,33,35,39,45,51,52,56,58,59,66,68).Cervical sources are required for HPV testing.If a vaginal source from a patient who has had atotal hysterectomy with removal of cervix wassubmitted, please contact the testing laboratoryfor alternative testing options.For additional information, please refer tohttp://education.Xangati/faq/WXZ711n0(This link if provided for information/educational purposes only.)THIS TEST WAS PERFORMED AT:[employer] [place] [phone] FOWLER MD HPV mRNA E6/E7 [facility] HPV 16 RNA [facility] HPV 18/45 RNA [facility] 05/28/2023 12:5 5 PM EDT 05/29/2023 9:15 AM EDT us Quang Cunningham CNM LAB CYTOLOGY ORDERABLES F inal Result [facility] [address] [place] [phone] * Pap Smear (05/28/2023 12:55 PM EDT) 05/28/2023 12:5 5 PM EDT 05/29/2023 9:15 AM EDT Narrative [facility] - 06/04/2023 2:03 PM EDT ----- ------- Name: Korin Dutton ?Age/Sex: 43/F ? : 1980 Unit#: [id number] ?? Attend Dr: QUANG CUNNINGHAM CNM ?Re05/28/23 ?Status: DEP REF ? Location: HO.CHCLNP ? Disch: ? ----- ------- SPEC : [id number] ?RECD: 05/29/23-914 ? STATUS: ??SOUT ? REQ NUM: [id number] ? KASH: 05/28/23-1254 ? SUBM DR: QUANG CUNNINGHAM CNM ? ENTERED: ??05/29/23-1013 ?SP TYPE: Pap Smr ?OTHR : ? ORDERED: ??Pap Smear ? Interpretation ?? Satisfactory for evaluation. ?? No endocervical cells seen. ?? Negative for intraepithelial lesion or malignancy. ? HPV mRNA E6/E7: ?NOT DETECTED ? This assay detects E6/E7 viral messenger RNA (mRNA) from 14 high-risk HPV types (16, 18, ?? 31, 33, 35, 39, 45, 51, 52, 56, 58, 59, 66, 68) ? HPV testing performed by [facility] [facility], [place], [place]. ??See reference laboratory ?? portion of the EMR for entire report. ?Clinical Information LMP: Unknown date Previous PAP test: 2019, WNL ? Material Received ?? ThinPrep-Cervical ----- ------- Signed (signature on file) Ly Mendoza Tobias 06/04/23 1403 ? ----- ------- ? END OF REPORT ? Quang Cunningham [facility] LAB CYTOLOGY ORDERABLES F inal Result [facility] [address] [place] [phone] * (ABNORMAL) Lipid Panel, Standard (12/27/2022 8:31 AM EDT) Cholesterol, Total 207(H) <200 mg/dL [facility] [facility] HDL Cholesterol 92 > OR = 50 mg/dL [facility] Triglycerides 74 <150 mg/dL [facility] LDL Cholesterol 99 mg/dL (calc) [facility] [facility] Comment: Reference range: <100 Desirable range <100 mg/dL for primary prevention; ?? <70 mg/dL for patients with CHD or diabetic patients with > or = 2 CHD risk factors. LDL-C is now calculated using the Byron-Hui calculation, which is a validated novel method providing better accuracy than the Friedewald equation in the estimation of LDL-C. Byron BARON et al. RUCHI. 2013;310(19): 1851-4190 (http://education.[employer].Wurl/faq/UIY712) Chol/HDLC Ratio 2.3 <5.0 (calc) [facility] Non-HDL Cholesterol 115 <130 mg/dL (calc) [facility] Comment: For patients with diabetes plus 1 major ASCVD risk factor, treating to a non-HDL-C goal of <100 mg/dL (LDL-C of <70 mg/dL) is considered a therapeutic option. Blood Venous blood specimen / Unknown 12/27/2022 8:31 AM EDT 12/27/2022 8:32 AM EDT Narrative [facility] - 12/28/2022 4:57 AM EDT FASTING:YES FASTING: YES us Renee Garvey MD LAB BLOOD ORDERABLES Final Re sult Performing Organization Address City/[facility]/ZIP Co de Phone Number [facility] [address], [place] [address] [facility] [facility] [address] [place] [address] * ALBUMIN, RANDOM URINE W/CREATININE (02/16/2022 8:33 AM EDT) Microalbumin Urine 0.2 See Note: mg/dL [facility] Comment: Reference Range: ?? Reference Range Not established Microalb/Creat Ratio 5 <30 mcg/mg creat [facility] Comment: ?? The ADA defines abnormalities in albumin excretion as follows: ?? Albuminuria Category ?Result (mcg/mg creatinine) ?? Normal to Mildly increased ?? <30 Moderately increased ? 30-299 ?? Severely increased ? > OR = 300 ?? The ADA recommends that at least two of three specimens collected within a 3-6 month period be abnormal before considering a patient to be within a diagnostic category. Creatinine, Urine 39 20 - 275 mg/dL [facility] 02/16/2022 8:33 AM EDT us Renee Garvey MD LAB URINE ORDERABLES Final Re sult Performing Organization Address City/[facility]/ZIP Co de Phone Number [facility] [address] from Last 3 Months or Most Recently Relevant to Health Maintenance Insurance [employer] [facility] MEDICAID LIMITED ADULT DENTAL - [facility] FULL (MEDICAID) Care Teams Appliance Servicer Relationship Specialty Start Date End Date Renee Garvey MD [address] [place] [id number] PCP - General Family Medicine 09/09/18
--- OUTSIDE RECORDS SUMMARY | 2024-12-24 09:30 | XMS_ITS | Encounter Summary ---
Author Organization [employer] Address [address] [place] [address] 7 [place] [address] Care Team Providers Care Senior Architect Name Role Phone Renee Garvey MD Primary Care Provider [phone] Encounter Details Date Type Department Care Team ([facility] Contact Info) Description 08/27/2022 Abstract [facility] AD[facility] [address] [place], [place] [phone] Christian Harrison DMD [address] [place] [address] Social History Tobacco Use Types Packs/Day Years Used Date Smoking Tobacco: Never Assessed Comments Unknown Sex and Gender Information Value Date Recorded Sex Assigned at Female 07/09/2022 10:18 AM EDT Legal Sex Female 10:18 AM EDT Gender Identity Female 07/09/2022 10:18 AM EDT Sexual Orientation Straight 07/09/2022 10 :18 AM EDT COVID-19 Exposure Response Date Recorded In the last 10 days, have yo u been in contact with someone who was confirmed or suspected to have Coronavirus/COVID-19? No / Unsure 08/30/2022 2:53 PM EST documented as of this encounter Plan of Treatment Upcoming Encounters Date Type Department Care Team (Late Contact Info) Description 02/04/2025 3:15 PM EDT Office Visit [facility] MED & PEDS [address], [place] [phone] Renee Garvey MD [address] [place], [place] [phone] documented as of this encounter Procedures Procedure Name Priority Date/Time Associated Diagnosis Comments 31 MO COMPOSITE FILLING Routine 08/27/2022 12:00 AM EST 28 COMPOSITE FILLING Routine 08/27/2022 12:00 AM EST 25 PR COMPOSITE FILLING Routine 08/27/2022 12:00 AM EST 21 DO COMPOSITE FILLING Routine 08/27/2022 12:00 AM EST 15 MOL COMPOSITE FILLING Routine 08/27/2022 12:00 AM EST 10 MFL COMPOSITE FILLING Routine 08/27/2022 12:00 AM EST 11 F(V) COMPOSITE FILLING Routine 08/27/2022 12:00 AM EST 9 DFL COMPOSITE FILLING Routine 08/27/2022 12:00 AM EST 6 DFL COMPOSITE FILLING Routine 08/27/2022 12:00 AM EST 3 MOL COMPOSITE FILLING Routine 08/27/2022 12:00 AM EST documented in this encounter Visit Diagnoses Not on filedocumented in this encounter Care Teams Senior Architect Relationship Specialty Start Date End Date Renee Garvey MD [address] [place] [address] PCP - General Family Medicine 09/09/18 documented as of this encounter
--- OUTSIDE RECORDS SUMMARY | 2024-12-24 09:30 | XMS_ITS | Encounter Summary ---
Author Organization [employer] Address [address] [place] [address] 7 [place] [address] Care Team Providers Care Ui Developer Designer Name Role Phone Renee Garvey MD Primary Care Provider [phone] Encounter Details Date Type Department Care Team ([facility] Contact Info) Description 08/27/2022 Abstract [facility] ADULT DENTAL [address] [place], [place] [phone] Christian Harrison DMD [address] [place] [address] Social History Tobacco Use Types Packs/Day Years [...] Description 02/04/2025 3:15 PM EDT Office Visit [facility] MED [facility] PED[facility] [address] [place], [place] [phone] Renee Garvey MD [address] [place], [place] [phone] documented as of this encounter Procedures Procedure Name Priority Date/Time Associated Diagnosis Comments 30,29,20,19,18 PARTIAL DENTURE - RESIN Routine 08/27/2022 12:00 AM EST 12 CROWN - PORCELAIN/CERAMIC Routine 08/27/2022 12:00 AM EST 8 CROWN - PORCELAIN/CERAMIC Routine 08/27/2022 12:00 AM EST 7 CROWN - PORCELAIN/CERAMIC Routine 08/27/2022 12:00 AM EST 5 CROWN - PORCELAIN/CERAMIC Routine 08/27/2022 12:00 AM EST 4 CROWN - PORCELAIN/CERAMIC Routine 08/27/2022 12:00 AM EST 32 EXTRACTION Routine 08/27/2022 12:00 AM EST 30 EXTRACTION Routine 08/27/2022 12:00 AM EST 29 EXTRACTION Routine 08/27/2022 12:00 AM EST 20 EXTRACTION Routine 08/27/2022 12:00 AM EST 19 EXTRACTION Routine 08/27/2022 12:00 AM EST 18 EXTRACTION Routine 08/27/2022 12:00 AM EST 17 EXTRACTION Routine 08/27/2022 12:00 AM EST 16 EXTRACTION Routine 08/27/2022 12:00 AM EST 14 EXTRACTION Routine 08/27/2022 12:00 AM EST 2 EXTRACTION Routine 08/27/2022 12:00 AM EST 1 EXTRACTION Routine 08/27/2022 12:00 AM EST 12 ROOT CANAL Routine 08/27/2022 12:00 AM EST 8 ROOT CANAL Routine 08/27/2022 12:00 AM EST 7 ROOT CANAL Routine 08/27/2022 12:00 AM EST 5 ROOT CANAL Routine 08/27/2022 12:00 AM EST 4 ROOT CANAL Routine 08/27/2022 12:00 AM EST documented in this encounter Visit Diagnoses Not on filedocumented in this encounter Care Teams Ui Developer Designer Relationship Specialty Start Date End Date Renee Garvey MD [address] [place] [address] PCP - General Family Medicine 09/09/18 documented as of this encounter
--- OUTSIDE RECORDS SUMMARY | 2024-12-24 09:30 | XMS_ITS | Encounter Summary ---
Author Organization [employer] Address [address] [place] [address] 7 [place] [address] Care Team Providers Care Manager Room Name Role Phone Renee Garvey MD Primary Care Provider [phone] Encounter Details Date Type Department Care Team (Latest Contact Info) Description 05/31/2021 Abstract [facility] CONVERSIONS Dental, Provider, DDS Social History Tobacco Use Types Packs/Day Years Used Date Smoking Tobacco: Never Assessed Comments Unknown Sex and Gender Information Value Date Recorded Sex Assigned at Female 07/09/2022 10:18 AM EDT Legal Sex Female 10:18 AM EDT Gender Identity Female 07/09/2022 10:18 AM EDT Sexual Orientation Straight 07/09/2022 10 :18 AM EDT documented as of this encounter Plan of Treatment Upcoming Encounters Date Type Department Care Team (Late st Contact Info) Description 02/04/2025 3:15 PM EDT Office Visit [facility] MED & PEDS [address] [place] [address] Renee Garvey MD [address] [place] [address] documented as of this encounter Visit Diagnoses Not on filedocumented in this encounter Care Teams Manager Room Relationship Specialty Start Date End Date Renee Garvey MD [address] [place] [address] PCP - General Family Medicine 09/09/18 documented as of this encounter
--- OUTSIDE RECORDS SUMMARY | 2024-12-24 09:30 | XMS_ITS | Encounter Summary ---
Author Organization [employer] Address [address] [facility] 7t [place] [address] Care Team Providers Care Biology Intern Name Role Phone Renee Garvey MD Primary Care Provider [phone] Encounter Details Date Type Department Care Team ([facility] Contact Info) Description 09/23/2024 Orders Only [facility] MEDICINE [address] [place] [address] Leilani Paredes CNM [address] [place] [address] Abnormal uterine bleeding (AUB) (Primary Dx); Screening examination for venereal disease Social History Tobacco Use Types Packs/Day Years Used Date Smoking Tobacco: Never Passive Smoke Exposure: Never Smokeless Tobacco: Never Alcohol Use Standard Drinks/Week Comments Not Currently [...] the past 12 months, has t he [employer], gas, oil or water company threatened to [...] Description 02/04/2025 3:15 PM EDT Office Visit [facility] MED & PEDS [address] [place], [place] [phone] Renee aGrvey MD [address] [place] [address] Scheduled Orders Name Type Priority Associated Diagnoses Orde r Schedule Mycoplasma/Ureapla sma??Panel Microbiology Routine Abnormal uterine bleeding (AUB) Screening examination for venereal disease Expected: 09/23/2024 (Approximate), Expires: 09/23/2025 documented as of this encounter Visit Diagnoses Diagnosis Abnormal uterine bleeding (AUB)- Primary Screening examination for venereal disease documented in this encounter Additional Health Concerns Assessment Noted Time PHQ-9 Depression Total Score: 6 12/14/19 23 2:22 PM EDT documented as of this encounter Care Teams Biology Intern Relationship Specialty Start Date End Date Renee Garvey MD [address] [place] [address] PCP - General Family Medicine 09/09/18 documented as of this encounter
[2024-12-24 14:21] LABS: MANUAL DIFF FLAG NO
[2024-12-24 14:25] LABS: Basophils Percent Auto 0.4 % (0-2); Eosinophils Absolute Auto 0.1 X10*3/uL (0.0-0.4); Eosinophils Percent Auto 1.7 % (0-4); Hematocrit 41.5 % (37.0-47.0); Hemoglobin 14.3 g/dl (12.0-16.0); Imm Gran Abs Auto 0.01 X10*3/uL (0.00-0.03); Imm Gran Pct Auto 0.2 % (0.0-0.4); Lymphocytes Absolute Auto 1.7 X10*3/uL (1.2-4.9); Lymphocytes Percent Auto 36.8 % (20-40); Mean Corpuscular HGB Conc 34.5 g/dl (31.0-35.0); Mean Corpuscular Volume 101.5 fL (80.0-98.0); Mean Platelet Volume 9.3 fL (9.4-12.3); Monocytes Absolute Auto 0.3 X10*3/uL (0.1-1.2); Monocytes Percent Auto 5.4 % (2-11); Neutrophils Absolute Auto 2.6 x10*3/uL (2.0-8.3); Neutrophils Percent Auto 55.5 % (45-73); Platelet Count 263 X10*3/uL (160-400); Red Blood Count 4.09 X10*6/uL (4.20-5.50); Red Cell Distribution Width 12.1 % (11.0-16.0); White Blood Count 4.6 X10*3/uL (4.8-10.8)
[2024-12-24 14:35] LABS: Creatinine Urine 97.21 mg/dL; Microalbum/Creatinine Ratio Ur 9.2 ug/mg cr (<30)
[2024-12-24 14:57] LABS: Alanine Aminotransferase 17 U/L (0-31); Albumin Level 4.2 g/dL (3.5-5.0); Anion Gap 12 (12-20); Aspartate Amino Transferase 23 U/L (5-31); Bilirubin Direct 0.3 mg/dL (0.0-0.5); Bilirubin Total 0.7 mg/dL (0.0-1.0); Blood Urea Nitrogen 11 mg/dL (9-16); Calcium 9.5 mg/dL (8.4-10.2); Carbon Dioxide 25 mmol/L (22-29); Chloride 105 mmol/L (96-108); Cholesterol 236 mg/dL (<200); Estimated Glomerular Filt Rate > 60; Glucose Fasting 113 mg/dL (60-99); HDL Cholesterol 100 mg/dL (>40); LDL Cholesterol Calculated 125 mg/dL (<100); Potassium 3.8 mmol/L (3.3-5.1); Sodium 138 mmol/L (135-145); Total Protein 7.3 g/dL (6.5-8.0); Triglycerides 55 mg/dL (<150)
[2024-12-24 15:03] LABS: Alkaline Phosphatase 38 U/L (39-117); TSH reflex Free T4 1.49 uIU/mL (0.32-4.0); Vitamin D 25-OH Total 52.3 ng/mL (>30)
[2024-12-24 15:10] LABS: Folate 15.8 ng/mL (> or = 4.0); Vitamin B12 938 pg/mL (200-900)
== END 2024-12-24 08:49 | disposition home or self-care (01) ==
LOC: HO.CHCLDS 08:48
PROVIDERS: Visit Provider Pediatrics
DX: E10.9 Type 1 diabetes mellitus without complications (principal); F10.11 Alcohol abuse, in remission
CPT/HCPCS: 36415; 80048; 80061; 80076; 82043; 82306; 82570; 82607; 82746; 84443; 85025

== ENCOUNTER 2025-01-14 08:02 | Outpatient (REF) | payer MEDICAID, OTHER, SELFPAY ==
--- NOTE | ~2025-01-14 | US_ITS ---
CLINICAL HISTORY: rule out liver disease --- Additional Notes or Special Instructions: alcohol abuse US abdomen limited with color Doppler Comparison: None Findings: Visualized pancreas is normal. Tail obscured by bowel gas. Liver is normal in size and echotexture. Right lobe length 15.3 cm. No focal hepatic masses. Common duct 2.1 mm diameter. Gallbladder is physiologically distended. No gallstones, sludge or wall abnormalities. No gallbladder wall thickening. No pericholecystic fluid. No sonographic Ryan sign. Right kidney measures, 11.8 cm in length. Normal cortical width and echotexture. No hydronephrosis calculus or mass. Impression: 1. Normal right upper quadrant ultrasound This document has been electronically signed by: Barrie Hoover MD on 01/14/2025 16:40:09
--- OUTSIDE RECORDS SUMMARY | 2025-01-14 08:07 | XMS_ITS | Encounter Summary ---
Author Organization [employer] Address [address] [place] [address], [place] [address] Care Team Providers Care Fertilizer Processing Supervisor Name Role Phone Renee Garvey MD Primary Care Provider [phone] Encounter Details Date Type Department Care Team (Latest Contact Info) Description 05/31/[address] [facility] CONVERSIONS Dental, Provider, DDS Social History Tobacco [...] Description 02/04/2025 3:15 PM EDT Office Visit [facility] MED & PEDS [address] [place] [address] Renee Garvey MD [address] [place] [address] documented as of this encounter Visit Diagnoses Not on filedocumented in this encounter Care Teams Fertilizer Processing Supervisor Relationship Specialty Start Date End Date Renee Garvey MD [address] [place] [address] PCP - General Family Medicine 09/09/18 documented as of this encounter
--- OUTSIDE RECORDS SUMMARY | 2025-01-14 08:07 | XMS_ITS | Encounter Summary ---
Author Organization [employer] Address [address] [facility] [address], [place] [address] Care Team Providers Care Tallow Refiner Name Role Phone Renee Garvey MD Primary Care Provider Reason for Visit * Reason Onset Date Comments Medication Question 10/23/2023 Encounter Details Date Type Department Care Team ([facility] Contact Info) Description 10/23/2023 Telephone [facility] MED & PEDS [address] [place], [place] [phone] Renee Garvey MD [address] [place] [address] Medication Question Social History Tobacco Use Types [...] Description 02/04/2025 3:15 PM EDT Office Visit [facility] MED & PEDS [address] [place] [address] Renee Garvey MD [address] [place] [address] documented as of this encounter Visit Diagnoses Not on filedocumented in this encounter Additional Health Concerns Assessment Noted Time PHQ-9 Depression Total Score: 6 12/14/19 23 2:22 PM EDT documented as of this encounter Care Teams Tallow Refiner Relationship Specialty Start Date End Date Renee Garvey MD [address] [place] [address] PCP - General Family Medicine 09/09/18 documented as of this encounter
--- OUTSIDE RECORDS SUMMARY | 2025-01-14 08:07 | XMS_ITS | Encounter Summary ---
Author Organization [employer] Address [address] [facility] 7t [place] [address] Care Team Providers Care Box Truck Driver Name Role Phone Renee Garvey MD Primary Care Provider [phone] Encounter Details Date Type Department Care Team ([facility] Contact Info) Description 09/23/2024 Orders Only [facility] MEDICINE [address] [place], [place] [phone] Leilani Paredes CNM [address] [place] [address] Abnormal uterine bleeding (AUB) (Primary Dx); Screening [...] PM EDT Office Visit [facility] MED & PEDS [address] [place] [address] Renee Garvey MD [address] [place] [address] Scheduled Orders Name Type Priority Associated Diagnoses [...] documented as of this encounter Care Teams Box Truck Driver Relationship Specialty Start Date End Date Renee Garvey MD [address] [place] [address] PCP - General Family Medicine 09/09/18 documented as of this encounter
--- OUTSIDE RECORDS SUMMARY | 2025-01-14 08:07 | XMS_ITS | Encounter Summary ---
Author Organization [employer] Address [address] [place] [address] [address], [place] [address] Care Team Providers Care Loader Helper Sorting Yard Name Role Phone Renee Garvey MD Primary Care Provider [phone] Encounter Details Date Type Department Care Team ([facility] Contact Info) Description 08/27/2022 Abstract [facility] ADULT D[facility] [address] [place], [place] [phone] Christian Harrison DDS [address] [place] [address] Social History Tobacco Use Types Packs/Day Years [...] Visit [facility] [address] [place], [place] [phone] Renee Garvey MD [address] [place], [place] [phone] documented as of this encounter Procedures Procedure [...] on filedocumented in this encounter Care Teams Loader Helper Sorting Yard Relationship Specialty Start Date End Date Renee Garvey MD [address] [place] [address] PCP - General Family Medicine 09/09/18 documented as of this encounter
--- OUTSIDE RECORDS SUMMARY | 2025-01-14 08:07 | XMS_ITS | Encounter Summary ---
Author Organization [employer] Address [address] [place] [address] [address] [address] Care Team Providers Care Toe Stripper Name Role Phone Renee Garvey MD Primary Care Provider [phone] Encounter Details Date Type Department Care Team ([facility] Contact Info) Description 08/27/2022 Abstract [facility] ADULT DENT[facility] [address] [place], [place] [phone] Christian Harrison DDS [address] [place] [address] Social History Tobacco Use Types Packs/Day Years [...] Description 02/04/2025 3:15 PM EDT Office Visit [facility] MED & PEDS [address] [place], [place] [phone] Renee Garvey MD [address] [place], [place] [phone] documented as of this encounter Procedures Procedure Name Priority Date/Time Associated Diagnosis Comments 31 MO COMPOSITE FILLING Routine 08/27/2022 12:00 AM EST 28 COMPOSITE FILLING Routine 08/27/2022 12:00 AM EST 25 AK COMPOSITE FILLING Routine 08/27/2022 12:00 AM EST [...] on filedocumented in this encounter Care Teams Toe Stripper Relationship Specialty Start Date End Date Renee Garvey MD [address] [place] [address] PCP - General Family Medicine 09/09/18 documented as of this encounter
--- OUTSIDE RECORDS SUMMARY | 2025-01-14 08:07 | XMS_ITS | Clinical Summary ---
Author Organization [employer] Address [address] [facility] [address] [place] [address] Care Team Providers Care Program Mgr Name Role Phone Renee Garvey MD Primary Care Provider [phone] Allergies No known active allergies Medications * This document contains information received from the source organization and may not represent a complete record from that organization. glucose blood (FREESTYLE LITE) test strip 1 strip every 6 (six) hours. 11/24/19 20 Active FLUoxetine (PROzac) 20 MG capsule TAKE [...] 10/13/19 25 Active naltrexone (Depade) 50 MG tabletIndicati ons:H/O ETOH abuse TAKE ONE TABLET EVERY MORNING [...] skin 3 times daily. 10 mL 11 12/08/19 25 Active traZODone (Desyrel) 100 MG tablet TAKE ONE TABLET AT BEDTIME 30 tablet 5 01/06/20 25 Active traZODone (Desyrel) 100 MG tablet TAKE ONE TABLET AT BEDTIME 30 tablet 5 06/15/20 24 025 Discontinued Active Problems Problem Noted [...] Encounters Date Type Department Care Team Description 01/01/2025 Refill [facility] [address] [place] [address] Renee Garvey MD 12/17/2024 9:15 AM EDT Office Visit [facility] [address] [place] [address] Renee Garvey MD Type I diabetes mellitus, well controlled ([facility]) (Primary Dx); H/O ETOH abuse; Primary insomnia; Acquired hypothyroidism; Chronic anxiety 12/17/2024 Travel 12/16/2024 Telephone [facility] [address] [place] [address] Leonila Garcia 12/07/2024 Refill [facility] [address] [place] [address] Renee Garvey MD 12/07/2024 Refill [facility] [address] [place] [address] Renee Garvey MD 12/05/2024 Refill [facility] [address] [place] [address] Renee Garvey MD 12/04/2024 Refill [facility] [address] [place] [address] Renee Garvey MD H/O ETOH abuse 11/18/2024 3:00 PM EDT Office Visit [facility] [address] [place] [address] Júnior, Teresa, OD Diabetes type 1, no ocular involvement (CMS/HCC) (Primary Dx); Dry eye syndrome of both eyes; Suspicious optic nerve cupping of both eyes; Presbyopia 11/18/2024 Travel 11/12/2024 Telephone [facility] [address] [place] [address] Renee Garvey MD Nurse Triage 11/06/2024 2:00 PM EST Office Visit [facility] [address] [place] [address] Arun Meltonanpreet 10/20/2024 2:45 PM EST Office Visit [facility] [address] [place] [address] Arun Meltonanpreet from Last 3 Months Immunizations Name Administration [...] Upcoming Encounters Date Type Department Care Team ([facility] st Contact Info) Description 02/04/2025 3:15 PM EDT Office Visit [facility] [address] [facility] [place] [address] Renee Garvey MD [address] [place] [address] Health Maintenance Due Date Last Done Comments Diabetes: Foot Exam 1991 Alcohol/Substance Use Screening 1993 Hepatitis B Vaccines (1 of 3 - 19+ 3-dose series) 02/29/2000 Pneumococcal Vaccine: Pediatrics (0 to 5 Years) and At-Risk Patients (6 to 49) Years) (2 of 2 - PCV) 12/24/2019 12/23/2018 Depression Screening 12/14/2023 12/13/2022, 12/14/19 23 SDOH Screening 12/14/2023 12/13/2022 COVID-19 Vaccine ( season) 2024 10/20/2021, 01/23/2021, 01/02/2021 Influenza Vaccine (#1) 2024 , 05/24/2020, 06/26/2019, Additional history exists Dental Oral Exam 12/16/2024 06/16/2024, 09/25/2022 Dental Prophylaxis 12/16/2024 06/16/2024, 09/25/2022 Diabetes: Hemoglobin A1C 03/18/2025 025, 02/11/2024, 10/23/2023, Additional history exists Family Planning (PISQ) 06/02/2025 06/02/2024 Dental X-Ray: Bitewings 06/17/2025 06/16/2024, 09/25 Tobacco Screening 12/17/2025 12/17/2024 Diabetes: Urine Protein Screening 12/24/2025 12/24/2024, 02/16/2022, 07/13/2020 Lipid Panel 12/24/2025 12/24/2024, 12/09, 02/16/2022, Additional history exists Pap Smear 05/28/2026 05/28/2023, 05/24/2020 Mammogram 07/22/2026 07/22/2024, 11/0 04/2023, 07/12/2022, Additional history exists Eye Exam 11/18/2026 [...] Procedure Name Priority Date/Time Associated Diagnosis Comments ALBUMIN, RANDOM URINE W/CREATININE Routine 12/24/2024 8:56 AM EDT Type I diabetes mellitus, well controlled (CMS/HCC) H/O ETOH abuse LIPID PANEL, STANDARD Routine 12/24/2024 8:50 AM EDT Type I diabetes mellitus, well controlled (CMS/HCC) H/O ETOH abuse HEPATIC FUNCTION PANEL Routine 8:50 AM EDT Type I diabetes mellitus, well controlled (CMS/HCC) H/O ETOH abuse VITAMIN B12/FOLATE, SERUM PANEL Routine 12/24/2024 8:50 AM EDT Type I diabetes mellitus, well controlled (CMS/HCC) H/O ETOH abuse VITAMIN D,25-OH,TOTAL,IA Routine 12/24/2024 8:50 AM EDT Type I diabetes mellitus, well controlled (CMS/HCC) H/O ETOH abuse TSH W/REFLEX TO FT4 Routine 12/24/2024 8 :50 AM EDT Type I diabetes mellitus, well controlled (CMS/HCC) H/O ETOH abuse CBC WITH AUTO DIFFERENTIAL Routine 12/24/2024 8:50 AM EDT Type I diabetes mellitus, well controlled (CMS/HCC) H/O ETOH abuse BASIC METABOLIC PANEL, FASTING Routine 12/24/2024 8:50 AM EDT Type I diabetes mellitus, well controlled (CMS/HCC) H/O ETOH abuse POCT GLYCATED HEMOGLOBIN, TOTAL Routine 12/17/2024 9:40 AM EDT Type I diabetes mellitus, well controlled (CMS/HCC) POCT GLUCOSE Routine 12/17/2024 9:40 AM EDT Type I diabetes mellitus, well controlled (CMS/HCC) OCT, OPTIC NERVE - OU - BOTH [...] TRY IN Routine 10/20/2024 2:45 PM EST BI MAMMOGRAM SCREENING TOMOSYNTHESIS BILATERAL [...] PAP SMEAR Routine 05/28/2023 12:55 PM EDT from Last 3 Months or Most Recently Relevant to Health Maintenance Results * Albumin, Random Urine W/Creatinine (12/24/2024 8:56 AM EDT) Creatinine, Urine 97.21 mg/dL [facility] Microalbumin Urine 9.0 mg/L [facility] Microalbum Creatinine Ratio Ur 9.2 <30 ug/mg cr [facility] Comment:Albumin/Creatinine R atio Reference Ranges: Normal: < 30 ug/mg creatinine Microalbuminuria: 30 - 300 ug/mg creatinineClinical Albuminuria: > 300 ug/mg creatinine Urine (Urine, Random) 12/24/2024 8:56 AM EDT 12/24/2024 2:03 PM EDT us Renee Garvey MD LAB URINE ORDERABLES Final Re sult [facility] [address] [place] [phone] * (ABNORMAL) Basic Metabolic Panel, Fasting (12/24/2024 8:50 AM EDT) Sodium 138 135 - 145 mmol/L [facility] Potassium 3.8 3.3 - 5.1 mmol/L [facility] Chloride 105 96 - 108 mmol/L [facility] Carbon Dioxide 25 22 - 29 mmol/L [facility] Anion Gap 12 12 - 20 [facility] Urea Nitrogen (BUN) 11 9 - 16 mg/dL [facility] Creatinine, Serum 0.74 0.5 - 1.4 mg/dL [facility] Estimated Glomerular Filt Rate >60 [facility] Comment:Chronic Kidney Disea se: Estimated GFR < 60 mL/min/1.43v2Rbljql Kidney Disease: Estimated GFR < 15 mL/min/1.73m2 Glucose Fasting 113(H) 60 - 99 mg/dL [facility] Comment:A fasting glucose fr om 100-125 mg/dl is considered impaired(pre-diabetes). Calcium 9.5 8.4 - 10.2 mg/dL [facility] Blood Venous blood specimen / Unknown 12/24/2024 8:50 AM EDT 12/24/2024 2:13 PM EDT us Renee Garvey MD LAB BLOOD ORDERABLES Final Re sult [facility] [address] [place] [phone] * Vitamin D, 25-Hydroxy, Total, Immunoassay (12/24/2024 8:50 AM EDT) Vitamin D 25-OH Total 52.3 >30 ng/mL [facility] Comment: Health Based Reference Values*< 20 ??ng/mL ??Spdpsbpxo50-39 ng/mL ??Insufficient> 30 ??ng/mL ??Sufficient*Berto RODRIGUEZ. N Engl J Med. 2007;357:266-280There is no well-established upper level of normal vitamin Dlevels. Some laboratories use 50 ng/mL as an upper limit ofnormal. However, toxicity is patient-dependent and may occurat any level. Careful correlation with the patient'spresentation is necessary and, if there is concern forvitamin D toxicity, treatment should be consideredirrespective of the serum level.Care must be taken in interpreting Vitamin D results fromdifferent laboratories and methodologies. ??Published datademonstrated that results from patients undergoinghemodialysis may show a negative bias when tested withvarious automated 25-OH vitamin D assays when compared toLC- MS/MS.When testing samples from patients whose predominant form ofVitamin D is Vitamin D2, such as patients receiving VitaminD2 supplementation, results that are subtherapeutic shouldbe confirmed with another method such as LC-MS/MS. Blood Venous blood specimen / Unknown 12/24/2024 8:50 AM EDT 12/24/2024 2:13 PM EDT Renee Garvey MD LAB BLOOD ORDERABLES Final Re sult Performing Organization Address [facility]/ZIP Co de Phone Number [facility] [address] [place] [phone] * (ABNORMAL) Vitamin B12/Folate, Serum Panel (12/24/2024 8:50 AM EDT) Vitamin B12 938(H) 200 - 900 pg/mL [facility] Comment:NORMAL 200-900 PG/ML INDETERMINATE 160-199 PG/ML DEFICIENT < 160 PG/ML Folate 15.8 > or = 4.0 ng/mL [facility] Comment:Reference Values:> o r = 4.0 ng/mL< 4.0 ng/mL suggests folate deficiency Methotrexate, aminopterin and folinic acid(leucovorin) are chemotherapeutic agents whose molecularstructures are similar to folate; therefore, the Architectfolate assay cannot be used for patients using these drugs. Blood Venous blood specimen / Unknown 12/24/2024 8:50 AM EDT 12/24/2024 2:13 PM EDT Renee Garvey MD LAB BLOOD ORDERABLES Final Re sult Performing Organization Address [facility]/ZIP Co de Phone Number [facility] [address] [place] [phone] * TSH W/Reflex to FT4 (12/24/2024 8:50 AM EDT) TSH reflex Free T4 1.49 0.32 - 4.0 uIU/mL [facility] Blood Venous blood specimen / Unknown 12/24/2024 8:50 AM EDT 12/24/2024 2:13 PM EDT us Renee Garvey MD LAB BLOOD ORDERABLES Final Re sult [facility] [address] [place] [address] [phone] * (ABNORMAL) CBC auto differential (12/24/2024 8:50 AM EDT) White Blood Count 4.6(L) 4.8 - 10.8 X10*3/uL [facility] Red Blood Count 4.09(L) 4.20 - 5.50 X10*6/uL [facility] Hemoglobin 14.3 12.0 - 16.0 g/dl [facility] Hematocrit 41.5 37.0 - 47.0 % [facility] Mean Corpuscular Volume 101.5(H) 80.0 - 98.0 fL [facility] Mean Corpuscular Hemoglobin 35.0(H) 27.0 - 33.0 pg [facility] Mean Corpuscular HGB Conc 34.5 31.0 - 35.0 g/dl [facility] Red Cell Distribution Width 12.1 11.0 - 16.0 % [facility] Platelet Count 263 160 - 400 X10*3/uL [facility] Mean Platelet Volume 9.3(L) 9.4 - 12.3 fL [facility] Neutrophils Percent Auto 55.5 45 - 73 % [facility] Imm Gran Pct Auto 0.2 0.0 - 0.4 % [facility] Lymphocytes Percent Auto 36.8 20 - 40 % [facility] Monocytes Percent Auto 5.4 2 - 11 % [facility] Eosinophils Percent Auto 1.7 0 - 4 % [facility] Basophils Percent Auto 0.4 0 - 2 % [facility] NRBC Pct Auto 0.0 0.0 - 0.2 /100WBC [facility] Neutrophils Absolute Auto 2.6 2.0 - 8.3 x10*3/uL [facility] Imm Gran Abs Auto 0.01 0.00 - 0.03 X10*3/uL [facility] Lymphocytes Absolute Auto 1.7 1.2 - 4.9 X10*3/uL [facility] Monocytes Absolute Auto 0.3 0.1 - 1.2 X10*3/uL [facility] Eosinophils Absolute Auto 0.1 0.0 - 0.4 X10*3/uL [facility] Basophils Absolute Auto 0.0 0.0 - 0.2 X10*3/uL [facility] NRBC Abs Auto 0.000 0.0 - 0.012 X10*3/uL [facility] Blood Venous blood specimen / Unknown 12/24/2024 8:50 AM EDT 12/24/2024 2:19 PM EDT us Renee Garvey MD LAB BLOOD ORDERABLES Final Re sult [facility] [address] [place], [place] [phone] * (ABNORMAL) Hepatic Function Panel (12/24/2024 8:50 AM EDT) Bilirubin, Total 0.7 0.0 - 1.0 mg/dL [facility] Bilirubin, Direct 0.3 0.0 - 0.5 mg/dL [facility] Aspartate Amino Transferase 23 5 - 31 U/L [facility] Alanine Aminotransferase 17 0 - 31 U/L [facility] Total Protein 7.3 6.5 - 8.0 g/dL [facility] Albumin Level 4.2 3.5 - 5.0 g/dL [facility] Alkaline Phosphatase 38(L) 39 - 117 U/L [facility] Blood Venous blood specimen / Unknown 12/24/2024 8:50 AM EDT 12/24/2024 2:13 PM EDT Renee Garvey MD LAB BLOOD ORDERABLES Final Re sult Performing Organization Address City/[facility]/ZIP Co de Phone Number [facility] [address] [place] [address] [phone] * (ABNORMAL) Lipid Panel, Standard (12/24/2024 8:50 AM EDT) Triglycerides 55 <150 mg/dL [facility] Comment:Desirable Triglyceri de: less than 150 mg/dLBorderline High Triglyceride 150-199 mg/dLHigh Triglyceride: 200-499 mg/dLVery High Triglyceride: greater than or equal to 5OO mg/dL Cholesterol 236(H) <200 mg/dL [facility] Comment:Desirable Cholestero l: less than 200 mg/dLBorderline High Cholesterol: 200-239 mg/dLHigh Cholesterol: greater than 239 mg/dL LDL Cholesterol Calculated 125(H) <100 mg/dL [facility] Comment:Desirable LDL: less than 100 mg/dLNear Optimal/Above Optimal LDL: 110- 129 mg/dLBorderline High LDL: 130-159 mg/dLHigh LDL: 160-189 mg/dLVery High LDL: greater than or equal to 190 mg/dL HDL Cholesterol 100 >40 mg/dL [facility] Comment:Desirable HDL: great er than 40 mg/dL Note: This HDL assay may give artificially low results in patients with liver disease. Blood Venous blood specimen / Unknown 12/24/2024 8:50 AM EDT 12/24/2024 2:13 PM EDT Renee Garvey MD LAB BLOOD ORDERABLES Final Re sult Performing Organization Address City/[facility]/ZIP Co de Phone Number [facility] [address] [place] [address] [phone] * (ABNORMAL) POCT HGB A1C (12/17/2024 9:40 AM EDT) Hemoglobin A1C 8.2(A) 4.0 - 6.0 % QC Media Lot # [id number] Lot# Expiration Date [id number] Blood 12/17/2024 9:40 AM EDT Renee Garvey MD POINT OF CARE TEST ENTER/EDIT ORDERABLES Final Result * (ABNORMAL) POCT Glucose (12/17/2024 9:40 AM EDT) Pathologist [facility] [place] Glucose Blood, POC 351(A) 60 - 200 mg/dL QC Media Lot # [id number] Lot# Expiration Date Blood Capillary blood specimen / Unknown 12/17/2024 9:40 AM EDT us Renee Garvey MD POINT OF CARE TEST ENTER/EDIT ORDERABLES Final Result * BI Mammogram Screening Tomosynthesis Bilateral (07/22/2024 3:20 PM EST) Anatomical Region Laterality Modality Breast Bilateral Mammography 07/22/2024 3:20 PM EST Narrative 07/31/2024 8:49 AM EST ? [facility] ? [address] ?[place] [address] ? Mammography Report ? Signed ? Patient: Borkowska,Korin ?MR#: [id number] ?? [id number] ? : 1980 ?Acct:[id number] ? Age/Sex: 44 / F ?ADM Date: 11/13/24 ? Loc: HO.MAMMO ? Attending Dr: Renee Garvey MD ? Ordering Physician: Renee Garvey MD ?Results: 2Be ?? nign Findings ? Date of Service: 07/22/24 ?Follow Up: 1 Year From Orig ?? inal Mammogram ? Procedure(s): MM tomosynthesis screening BI ?? Accession Number(s): [id number] ? cc: Renee Garvey MD ? EXAMINATION: [...] DD/ 1520 ? TD/TT: 07/22/24 1530 ? Medical Case Worker: ? Procedure Note Donotuseinterpreter, Image - 07/31/2024 [facility] [address] [place], [place] [address] Mammography Report Signed Patient: Daisy DuttonynaMR#: [id number] : 1980Acct:[id number] Age/Sex: 44 / FADM Date: 07/22/24 Loc: HO.MAMMO Attending Dr: Renee Garvey MD Ordering Physician: Renee Garvey MDResults: 2Be nign Findings Date of Service: 07/22/24Follow Up: 1 Year From Orig inal Mammogram Procedure(s): MM tomosynthesis screening BI Accession Number(s): [id number] cc: Renee Garvey MD EXAMINATION: MM SCREENING [...] 07/31/24 0845 DD/ 1520 TD/TT: 07/22/24 1530 Medical Case Worker: Renee Garvey MD IMG BI PROCEDURES Final Resul t * Hepatitis A,B,C Profile (11/07/2023 11:33 AM EST) Hepatitis A IgM Nonreactive Nonreactive [facility] Comment:IgM antibodies to SHAW V not detected; does not exclude earlyacute or recovered HAV infection. ~Hepatitis B Surface Antibody REACTIVE Nonreactive [facility] Comment:REACTIVE: > 11.99 mI U/mL Hepatitis B Core Antibody Nonreactive Nonreactive [facility] Hepatitis C Antibody Nonreactive Nonreactive [facility] Comment:Antibodies to HCV no t detected; does not exclude early acuteHCV infection. Hepatitis B Surface Ag Negative Negative [facility] Blood Venous blood specimen / Unknown 11/07/2023 11:33 AM EST 11/07/2023 2:03 PM EST Renee Garvey MD LAB BLOOD ORDERABLES Final Re sult [facility] [address] [place] [phone] * HIV-1/2 Antigen and Antibodies, Fourth Generation, with Reflexes (11/07/2023 11:33 AM EST) HIV AB/AG Nonreactive Nonreactive [facility] Comment:HIV-1 p24 Ag and/or HIV-1/HIV-2 Ab not detected.A test result that is nonreactive does not exclude thepossibility of exposure to or infection with HIV-1 and/orHIV-2. Nonreactive results in this assay for individualswith prior exposure to HIV-1 and/or HIV-2 may be due toantigen and antibody levels that are below the limit ofdetection of this assay.The [employer] HIV Ag/Ab Combo assay result andsupplemental assay results should be interpreted inconjunction with the patient's clinical presentation,history and other laboratory results. If the results areinconsistent with clinical evidence, additional testing issuggested to confirm the result. Blood Venous blood specimen / Unknown 11/07/2023 11:33 AM EST 11/07/2023 2:03 PM EST us Renee Garvey MD LAB BLOOD ORDERABLES Final Re sult Performing Organization Address [facility]/ZIP Co de Phone Number [facility] [address] [place] [address] [phone] * HPV mRNA E6/E7 w/Reflex to HPV Genotypes 16, 18/45 (05/28/2023 12:55 PM EDT) HPV nRNA E6/E7 Not Detected Not Detected [facility] Comment:Methodology: Transcr iption-Mediated AmplificationThis assay detects E6/E7 viral messenger RNA (mRNA) from 14high-risk HPV types (16,18,31,33,35,39,45,51,52,56,58,59,66,68).Cervical sources are required for HPV testing.If a vaginal source from a patient who has had atotal hysterectomy with removal of cervix wassubmitted, please contact the testing laboratoryfor alternative testing options.For additional information, please refer [email or web address].[employer]/faq/NKU430k3(This link if provided for information/educational purposes only.)THIS TEST WAS PERFORMED AT:[facility] [place] [phone] FOWLER MD HPV mRNA E6/E7 [facility] HPV 16 RNA [facility] HPV 18/45 RNA [facility] 05/28/2023 12:5 5 PM EDT 05/29/2023 9:15 AM EDT us Quang Cunningham CNM LAB CYTOLOGY ORDERABLES F inal Result Performing Organization Address [facility]/ZIP Co de Phone Number [facility] [address] [place] [phone] * Pap Smear (05/28/2023 12:55 PM EDT) 05/28/2023 12:5 5 PM EDT 05/29/2023 9:15 AM EDT [facility] - 06/04/2023 2:03 PM EDT ----- ------- Name: Korin Dutton ?Age/Sex: 43/F ? : 1980 Unit#: [id number] ?? Attend Dr: QUANG CUNNINGHAM [facility] ?Re05/28/23 ?Status: DEP REF ? Location: HO.CHCLNP ? Disch: ? ----- ------- SPEC : [id number] ?RECD: 05/29/23-914 ? STATUS: ??SOUT ? REQ NUM: [id number] ? KASH: 05/28/23-1254 ? SUBM DR: QUANG [...] 66, 68) ? HPV testing performed by [facility], [place], [place]. ??See reference laboratory ?? portion of the EMR for entire report. ?Clinical Information LMP: Unknown date Previous PAP test: WNL ? Material Received ?? ThinPrep-Cervical ----- ------- Signed (signature on file) Ly Mendoza Tobias 06/04/23 1403 ? ----- ------- ? END OF REPORT ? us Quang Cunningham [facility] CYTOLOGY ORDERABLES F inal Result [facility] [address] [place] [phone] from Last 3 Months or Most Recently Relevant to Health Maintenance Insurance [employer] [facility] FULL Member Subscriber Plan / Payer (Ef fective 2022-Present) Name:Korin Dutton Relation to Subscriber:Self Name:Korin Dutton Payer ID:Not on file Group ID:Not on file Type:Not on file Address: [address] [place] [phone] [place]ENT[place] - [facility] FULL (MEDICAID) Care Teams Program Mgr Relationship Specialty Start Date End Date eRnee Garvey MD [address] [place] [phone] PCP - General Family Medicine 09/09/18
== END 2025-01-14 08:03 | disposition home or self-care (01) ==
LOC: HO.HMGCX 08:02
PROVIDERS: PCP Pediatrics; Visit Provider Pediatrics
DX: F10.11 Alcohol abuse, in remission (principal); E10.9 Type 1 diabetes mellitus without complications
CPT/HCPCS: 76705

== ENCOUNTER → 2025-01-14 08:10 | Outpatient (BNV) | payer SELFPAY | PROVIDERS: PCP Pediatrics; Visit Provider Radiology Diagnostic Radiology | DX: Z13.818 Encounter for screening for other digestive system disorders (principal) | CPT/HCPCS: 76705 ==

== ENCOUNTER 2025-07-19 12:26 | Outpatient (REF) | payer MEDICAID, OTHER, SELFPAY ==
--- OUTSIDE RECORDS SUMMARY | 2025-07-14 14:20 | XMS_ITS | Encounter Summary ---
Author Organization [employer] Address [address] [facility] 7 [place] [address] Care Team Providers Care Clinical Nursing Director Name Role Phone Renee Garvey MD Primary Care Provider [phone] Encounter Details Date Type Department Care Team ([facility] Contact Info) Description 07/14/2025 2:20 PM EST Office Visit [facility] CH[facility] MED & PEDS [address], [place] [phone] Akil Pérez MD [address] [place] [address] Acute cough (Primary Dx); Gastroesophageal reflux disease without esophagitis Social History Tobacco Use Types Packs/Day Years [...] the past 12 months, has t he Daz 3d, Ceon, oil or water Navigating Cancer threatened to shut off services in your home? No 06/24/2023 Depression Answer Date Recorded Patient Health Questionnaire-2 Score 2 12/13/2022 Comments No Sex and Gender Information Value Date Recorded Sex Assigned at Female 07/09/2022 10:18 AM EDT Legal Sex Female 10:18 AM EDT Gender Identity Female 07/09/2022 10:18 AM EDT Sexual Orientation Straight 07/09/2022 10 :18 AM EDT documented as of this encounter Last Filed Vital Signs Vital Sign Reading Time Taken Comments Blood Pressure 126/75 07/14/2025 2:17 PM EST Pulse 91 07/14/2025 2:17 PM EST Temperature 37.1 C (98.7 F) 07/14/2025 2:17 PM EST Respiratory Rate 20 07/14/2025 2:17 PM EST Oxygen Saturation 98% 07/14/2025 2:17 PM EST Inhaled Oxygen Concentration - - Weight 58.1 kg (128 lb) 07/14/2025 2:17 PM EST Height 170.2 cm (5' 7 ) 07/14/2025 2:17 PM EST Body Mass Index 20.05 07/14/2025 2:17 PM EST documented in this encounter Progress Notes * Akil Pérez MD - 07/14/2025 2:20 PM EST SUBJECTIVE Korin Dutton is a 45 y.o. female who presents for No chief complaint on file.. Note from triage reviewed: Telephone call to pt who reports having had cold 6 weeks ago but cough is ongoing. States cough isworst in the AM, coughs nonstop for an hour, it goes away, then comes back intermittently. Denies cold sxs at present, denies fever. Reports thick yellow mucous that is hard to get rid of with swallowing. She reports taking mucinex to mild relief last week. Pt reports that she has dental procedure today (07/12/25), scheduled for same day care appt in [place] for 07/14/25. Gave home care advise: cough medicine, cough drops, tea with honey, staying well hydrated with water. Gave reasons to call back: if develop continuous coughing, fever, shortness of breath. 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 Pt verbalized understanding, no further questions. Korin Dutton, 45-year-old female - Sore throat onset 6 weeks ago, followed by sneezing and then coughing - Persistent cough, worse in the morning and sometimes at night, ongoing for 6 weeks - Sensation of phlegm in throat, frequent swallowing, ongoing for approximately 4 weeks - Used risv-rbb-[id number] medications from [facility] for cough and sore throat, including Mucinex, with no improvement - Eats spicy foods Problem List[1] Allergies[2] Medications Ordered Prior to Encounter[3] Review of Systems OBJECTIVE Vitals: 07/14/25 1417 BP: 126/75 BP Location: Left arm Patient Position: Sitting BP Cuff Size: Adult Pulse: 91 Resp: 20 Temp: 98.7 ??F (37.1 ??C) TempSrc: Oral SpO2: 98% Weight: 128 lb (58.1 kg) Height: 5' 7 (1.702 m) Physical Exam Constitutional: General: She is not in acute distress. Appearance: Normal appearance. She is not ill-appearing, toxic-appearing or diaphoretic. HENT: Mouth/Throat: Pharynx: Postnasal drip present. Cardiovascular: Rate and Rhythm: Normal rate. Pulmonary: Effort: Pulmonary effort is normal. Neurological: Mental Status: She is alert. Assessment/Plan Assessment/Plan Diagnoses and all orders for this visit: Acute cough - POCT Rapid Covid-19 BinaxNOW - POCT Rapid Influenza A OSOM - POCT Rapid Influenza B OSOM - XR Chest 2 Views; Future - pseudoephedrine (Sudafed) 30 MG tablet; Take 1 tablet (30 mg) by mouth every 4 (four) hours if needed for congestion for up to 10 days. - Omeprazole 20 MG tablet delayed-release; Take 1 tablet (20 mg) by mouth Once per day. Gastroesophageal reflux disease without esophagitis Acute cough: - Upper airway cough syndrome suspected as the etiology of persistent cough. - Prescribed pseudoephedrine. Ordered chest X-ray to evaluate for other causes due to duration of symptoms exceeding 6 weeks. Sent information regarding management to patient's cell phone. Scheduled follow-up after chest X-ray. Gastroesophageal reflux disease without esophagitis: - Gastroesophageal reflux contributing to throat symptoms and cough. - Prescribed omeprazole. Recommended lifestyle modifications including avoiding late-night eating, dietary irritants such as caffeine, chocolate, and spicy foods. Advised to monitor response to treatment. This note was drafted using Ambient (AI) technology. The patient/patient's guardian has been informed and has consented to the use of this technology: Yes [1] Patient Active Problem List Diagnosis Adjustment disorder with mixed emotional features Acquired hypothyroidism Insomnia Type I diabetes mellitus, well controlled (HCC) Severe anxiety Anxiety Chronic anxiety Pelvic pain in female Premenopausal menorrhagia [2] No Known Allergies [3] Current Outpatient Medications on File Prior to Visit Medication Sig Dispense Refill acetaminophen (Tylenol) 500 MG tablet Take 1 tablet (500 mg) by mouth every 6 (six) hours if neededfor mild pain for up to 20 doses. 20 tablet 0 amoxicillin (Amoxil) 500 MG capsule Take 1 capsule (500 mg) by mouth every 8 (eight) hours for 7 days. 21 capsule 0 atorvastatin (Lipitor) 10 MG tablet Take 1 tablet (10 mg) by mouth Once per day. 30 tablet 11 busPIRone (Buspar) 5 MG tablet TAKE ONE TABLET TWICE DAILY 60 tablet 5 Continuous Glucose Polisher Implant (FreeStyle Agnieszka 2 [place]) device USE DIRECTED 1 each 0 Continuous Glucose Sensor (FreeStyle Agnieszka 2 Sensor) [facility] USE DIRECTED AND CHANGE EVERY 14 DAYS 2 each 2 doxycycline (Monodox) 100 MG capsule One twice a day for 14 days. Take with at least 8 ounces (large glass) of water, do not lie down for 30 minutes after 28 capsule 0 FLUoxetine (PROzac) 20 MG capsule TAKE ONE CAPSULE EVERY MORNING 30 capsule 5 glucose blood (FREESTYLE LITE) test strip 1 strip every 6 (six) hours. ibuprofen 600 MG tablet Take 1 tablet (600 mg) by mouth every 6 (six) hours if needed for mild painfor up to 20 doses. 20 tablet 0 insulin glargine (Lantus) 100 UNIT/ML injection inject 25 units by Subcutaneous route AT BEDTIME 10mL 11 Insulin Lispro (HumaLOG) 100 UNIT/ML solution Inject 0.1-0.15 mL (10-15 Units) under the skin 3 times daily. 10 mL 11 levothyroxine (Synthroid, Levoxyl) 125 MCG tablet TAKE ONE TABLET EVERY DAY 90 tablet 3 metroNIDAZOLE (Flagyl) 500 MG tablet Take 1 tab orally bid for 1 week 14 tablet 1 topiramate 50 MG tablet TAKE ONE TABLET DAILY 30 tablet 3 traZODone (Desyrel) 100 MG tablet TAKE ONE TABLET AT BEDTIME 30 tablet 5 [DISCONTINUED] Continuous Glucose Sensor (FreeStyle Agnieszka 2 Sensor) misc USE DIRECTED AND CHANGEEVERY 14 DAYS 2 each 2 No current facility-administered medications on file prior to visit. documented in this encounter Miscellaneous Notes * Patient Education Note - Akil Pérez MD - 07/14/2025 7:44 PM EST Images from the original note were not included. Patient Education Table of Contents GERD in Adults: What to Know To view videos and all your education online visit, [email or web address] or scan this QR code with your smartphone. Access to this content will in one year. GERD in Adults: What to Know Gastroesophageal reflux (ADAMA) is when acid from your stomach flows up into your esophagus. Your esophagus is the part of your body that moves food from your mouth to your stomach. Normally, food goesdown and stays in your stomach to be digested. But with ADAMA, food and stomach acid may go back up. You may have a disease called gastroesophageal reflux disease (GERD) if the reflux: Happens often. Causes very bad symptoms. Makes your esophagus sore and swollen. Over time, GERD can make small holes called ulcers in the lining of your esophagus. What are the causes? GERD is caused by a problem with the muscle between your esophagus and stomach. This muscle is called the lower esophageal sphincter (LES). When it's weak or not normal, it doesn't close like it should. This means food and stomach acid can go back up into your esophagus. The muscle can be weak if: You smoke or use products with tobacco in them. You're . You have a type of hernia called a hiatal hernia. You eat certain foods and drinks. These include: ? Alcohol. ? Coffee. ? Chocolate. ? Onions. ? Peppermint. What increases the risk? Being overweight. Having a disease that affects your connective tissue. Taking NSAIDs, such as ibuprofen. What are the signs or symptoms? Heartburn. Trouble swallowing. Pain when you swallow. The feeling of having a lump in your throat. A bitter taste in your mouth. Bad breath. Having an upset or bloated stomach. Burping. Chest pain. Other conditions can also cause chest pain. Make sure you see your health care providerif you have chest pain. Wheezing. This is when you make high-pitched whistling sounds when you breathe, most often when youbreathe out. A long-term cough or a cough at night. How is this diagnosed? GERD may be diagnosed based on your medical history and a physical exam. You may also have tests. These may include: An endoscopy. This test looks at your stomach and esophagus with a small camera. A barium swallow test. This shows the shape and size of your esophagus and how well it's working. Tests of your esophagus to check for: ? Acid levels. ? Pressure. How is this treated? Treatment may depend on how bad your symptoms are. It may include: Changes to your diet and daily life. Medicines. Surgery. Follow these instructions at home: Eating and drinking Follow an eating plan as told by your provider. You may need to avoid certain foods and drinks. These may include: ? Coffee and tea, with or without caffeine. ? Alcohol. ? Energy drinks and sports drinks. ? Fizzy drinks or sodas. ? Chocolate and cocoa. ? Peppermint and mint flavorings. ? Garlic and onions. ? Horseradish. ? Spicy and acidic foods. These include: ? Peppers. ? Bow powder and abrams powder. ? Vinegar. ? Hot sauces and BBQ sauce. ? Cayey fruits and juices. These include: ? Oranges. ? Masood. ? Limes. ? Tomato-based foods. These include: ? Red sauce and pizza with red sauce. ? Bow. ? Salsa. ? Fried and fatty foods. These include: ? Donuts. ? Luxembourgish fries. ? Potato chips. ? High-fat dressings. ? High-fat meats. These include: ? Hot dogs and sausage. ? Rib eye steak. ? Ham and mclean. ? High-fat dairy items. These include: ? Whole milk. ? Butter. ? Cream cheese. Eat small meals often. Avoid eating big meals. Avoid drinking lots of liquid with your meals. Try not to eat meals during the 2?3 hours before bedtime. Try not to lie down right after you eat. Do not exercise right after you eat. Lifestyle If you're overweight, lose an amount of weight that's healthy for you. Ask your provider about a safe weight loss goal. Do not smoke, vape, or use nicotine or tobacco. Wear loose clothes. Do not wear things that are tight around your waist. When you sleep, try: ? Raising the head of your bed about 6 inches (15 cm). You can use a wedge to do this. ? Lying down on your left side. Try to lower your stress. If you need help doing this, ask your provider. General instructions Take your medicines only as told. Do not take aspirin or ibuprofen unless you're told to. Watch for any changes in your symptoms. Do not bend over if it makes your symptoms worse. Contact a health care provider if: You have new symptoms. You have trouble: ? Drinking. ? Swallowing. ? Eating. It hurts to swallow. You have wheezing. You have a cough that won't go away. Your voice is hoarse. Your symptoms don't get better with treatment. Get help right away if: You have pain all of a sudden in your: ? Arm. ? Neck. ? Jaw. ? Teeth. ? Back. You feel sweaty, dizzy, or light-headed all of a sudden. You faint. You have chest pain or shortness of breath. You vomit and the vomit is: ? Green, yellow, or black. ? Looks like blood or coffee grounds. Your poop is red, bloody, or black. These symptoms may be an emergency. Call 911 right away. Do not wait to see if the symptoms will go away. Do not drive yourself to the hospital. This information is not intended to replace advice given to you by your health care provider. Make sure you discuss any questions you have with your health care provider. Document Released: 2006-06-05 Document Updated: 2024-07-07 Document Reviewed: 2024-01-22 [employer] Patient Education ? 2024 [employer]. documented in this encounter Plan of Treatment Not on file documented as of this encounter Procedures Procedure Name Priority Date/Time Associated Diagnosis Comments XR CHEST 2 VIEWS Routine 07/19/2025 1:09 PM EST Acute cough POCT RAPID COVID ANTIGEN Routine 07/14/2025 2:47 PM EST Acute cough POCT INFLUENZA A Routine 07/14/2025 2:46 PM EST Acute cough POCT INFLUENZA B Routine 07/14/2025 2:45 PM EST Acute cough documented in this encounter Results * XR Chest 2 Views (07/19/2025 1:09 PM EST) Anatomical Region Laterality Modality Chest Radiographic Mary ging 07/19/2025 1:09 PM EST Narrative 07/19/2025 1:33 PM EST [address] [address] XRay Report Signed Patient: Korin Dutton MR#: [id number] : 1980 Acct:[id number] Age/Sex: 45 / F ADM Date: 07/19/25 Loc: HO.HHCX Attending Dr: Akil Pérez MD Ordering Physician: Akil Pérez MD Date of Service: 07/19/25 Procedure(s): XR chest 2V Accession Number(s): [id number] cc: Akil Pérez MD; Renee Garvey MD Reason for Exam: cough x 6 weeks duration EXAMINATION: XR CHEST CLINICAL INFORMATION: cough x 6 weeks duration COMPARISON: None available. TECHNIQUE: 2 views of the chest were obtained. FINDINGS: No significant abnormality is noted involving the heart, lungs, mediastinum, bony thorax or soft tissues. XR/XR chest 2V IMPRESSION: No acute disease. Electronically signed by: Schuyler Horowitz MD 07/19/2025 01:31 PM EST RP Dictated By: Schuyler Horowitz MD Signed By: <Electronically signed by Schuyler Horowitz MD in OV> 07/19/25 1331 DD/ 1309 TD/TT: 07/19/25 1310 Data Support Specialist: Procedure Note Donotuseinterpreter, Image - 07/19/2025 [place] [address] XRay Report Signed Patient: Daisy DuttonynaMR#: [id number] : 1980Acct:[id number] Age/Sex: 45 / FADM Date: 07/19/25 Loc: HO.HHCX Attending Dr: Akil Pérez MD Ordering Physician: Akil Pérez MD Date of Service: 07/19/25 Procedure(s): XR chest 2V Accession Number(s): [id number] cc: Akil Pérez MD; Renee Garvey MD Reason for Exam: cough x 6 weeks duration EXAMINATION: XR CHEST CLINICAL INFORMATION: cough x 6 weeks duration COMPARISON: None available. TECHNIQUE: 2 views of the chest were obtained. FINDINGS: No significant abnormality is noted involving the heart, lungs, mediastinum, bony thorax or soft tissues. XR/XR chest 2V IMPRESSION: No acute disease. Electronically signed by: Schuyler Horowitz MD 07/19/2025 01:31 PM EST RP Dictated By: Schuyler Horowitz MD Signed By: <Electronically signed by Schuyler Horowitz MD in OV> 07/19/25 1331 DD/ 1309 TD/TT: 07/19/25 1310 Data Support Specialist: Akil Pérez MD IMG XR PROCEDURES Edited Re sult - Final * POCT Rapid Covid-19 BinaxNOW (07/14/2025 2:47 PM EST) [facility] Rapid COVID Ag Negative QC Media Lot # [id number] Lot# Expiration Date 7,026 Swab 07/14/2025 2:47 PM EST Akil Pérez MD POINT OF CARE TEST ENTER/ED IT ORDERABLES Final Result * POCT Rapid Influenza A OSOM (07/14/2025 2:46 PM EST) [facility] Rapid Influenza A Ag Negative Negative, Indeterminate QC Media Lot # [id number] Lot# Expiration Date , Swab Nasopharyngeal structure / Unknown 07/14/2025 2:46 PM EST Akil Pérez MD POINT OF CARE TEST ENTER/ED IT ORDERABLES Final Result * POCT Rapid Influenza B OSOM (07/14/2025 2:45 PM EST) [facility] Rapid Influenza B Ag Negative Negative, Indeterminate QC Media Lot # [id number] Lot# Expiration Date , Swab 07/14/2025 2:45 PM EST Akil Pérez MD POINT OF CARE TEST ENTER/ED IT ORDERABLES Final Result documented in this encounter Visit Diagnoses Diagnosis Acute cough- Primary Gastroesophageal reflux disease without esophagitis Esophageal reflux documented in this encounter Additional Health Concerns Assessment Noted Time PHQ-9 Depression Total Score: 6 12/14/19 23 2:22 PM EDT documented as of this encounter Care Teams Clinical Nursing Director Relationship Specialty Start Date End Date Renee Garvey MD [address] [place] [address] PCP - General Family Medicine 09/09/18 documented as of this encounter
--- NOTE | ~2025-07-19 | XR_ITS ---
EXAMINATION: XR CHEST CLINICAL INFORMATION: cough x 6 weeks duration COMPARISON: None available. TECHNIQUE: 2 views of the chest were obtained. FINDINGS: No significant abnormality is noted involving the heart, lungs, mediastinum, bony thorax or soft tissues. XR/XR chest 2V IMPRESSION: No acute disease. Electronically signed by: Schuyler Horowitz MD 07/19/2025 01:31 PM [facility]
--- OUTSIDE RECORDS SUMMARY | 2025-07-19 14:40 | XMS_ITS | Encounter Summary ---
Author Organization [employer] Address [address] [address] Care Team Providers Care B2B Outside Sales Representative Name Role Phone Renee Garvey MD Primary Care Provider [phone] Reason for Visit * Reason Onset Date Comments Appointment Request 07/14/2025 Encounter Details Date Type Department Care Team ([facility] Contact Info) Description 07/14/2025 Telephone [facility] CHC MED & PEDS [address] [place], [place] [phone] Renee Garvey MD [address] [place] [address] Appointment Request Social History Tobacco Use Types Packs/Day Years [...] encounter Miscellaneous Notes * Telephone Encounter - Lupe Pulliam - 07/14/2025 4:07 PM EST LVM attempted to scheduled active request appointment: Follow up in about 4 weeks (around 08/11/2025) for GERD/ ? Upper airway cough syndrome. Please schedule next avai. documented in this encounter Plan of Treatment Not on file documented as of this encounter Visit Diagnoses Not on filedocumented in this encounter Additional Health Concerns Assessment Noted Time PHQ-9 Depression Total Score: 6 12/14/19 23 2:22 PM EDT documented as of this encounter Care Teams B2B Outside Sales Representative Relationship Specialty Start Date End Date Renee Garvey MD [address] [place] [address] PCP - General Family Medicine 09/09/18 documented as of this encounter
--- OUTSIDE RECORDS SUMMARY | 2025-07-19 14:40 | XMS_ITS | Encounter Summary ---
Author Organization [employer] Address [address] [place] [address] Care Team Providers Care Mapper Name Role Phone Renee Garvey MD Primary Care Provider [phone] Encounter Details Date Type Department Care Team (Latest Contact Info) Description 05/31/2021 Abstract [facility] CONVERSIONS Dental, Provider, DDS Social History Tobacco Use Types Packs/Day Years Used Date Smoking Tobacco: Never Assessed Comments Unknown Sex and Gender Information Value Date Recorded Sex Assigned at Female 07/09/2022 10:18 AM EDT Legal Sex Female 10:18 AM EDT Gender Identity Female 07/09/2022 10:18 AM EDT Sexual Orientation Straight 07/09/2022 10 :18 AM EDT documented as of this encounter Plan of Treatment Not on file documented as of this encounter Visit Diagnoses Not on filedocumented in this encounter Care Teams Mapper Relationship Specialty Start Date End Date Renee Garvey MD [address] [place] [id number] PCP - General Family Medicine 09/09/18 documented as of this encounter
--- OUTSIDE RECORDS SUMMARY | 2025-07-19 14:40 | XMS_ITS | Encounter Summary ---
Author Organization [employer] Address 75 [facility] [address] [place] [address] Care Team Providers Care Technologist Infectious Disease Name Role Phone Renee Garvey MD Primary Care Provider [phone] Encounter Details Date Type Department Care Team ([facility] Contact Info) Description 09/23/2024 Orders Only [facility] MEDICINE [address] [place], [place] [phone] Leilani Paredes CNM [address] [place] [address] Abnormal uterine bleeding (AUB) (Primary Dx); Screening [...] as of this encounter Plan of Treatment Scheduled Orders Name Type Priority Associated Diagnoses Orde r Schedule Mycoplasma/Ureapla sma Panel Microbiology Routine Abnormal uterine bleeding (AUB) Screening examination for venereal disease Expected: 09/23/2024 (Approximate), Expires: 09/23/2025 documented as of this encounter Visit Diagnoses Diagnosis Abnormal uterine bleeding (AUB)- Primary Screening examination for venereal disease documented in this encounter Additional Health Concerns Assessment Noted Time PHQ-9 Depression Total Score: 6 12/14/19 23 2:22 PM EDT documented as of this encounter Care Teams Technologist Infectious Disease Relationship Specialty Start Date End Date Renee Garvey MD [address] [place] [address] PCP - General Family Medicine 09/09/18 documented as of this encounter
--- OUTSIDE RECORDS SUMMARY | 2025-07-19 14:40 | XMS_ITS | Encounter Summary ---
Author Organization [employer] Address 75 [facility] [address] [place] [address] Care Team Providers Care Riverboat Captain Name Role Phone Renee Garvey MD Primary Care Provider [phone] Reason for Visit * Reason Comments Med Refill Encounter Details Date Type Department Care Team ([facility] st Contact Info) Description 05/28/2025 Refill [facility] CHC MED & PEDS [address] [place], [place] [phone] Renee Garvey MD [address] [place] [address] Social History Tobacco Use Types Packs/Day Years [...] documented as of this encounter Care Teams Riverboat Captain Relationship Specialty Start Date End Date Renee Garvey MD [address] [place] [address] PCP - General Family Medicine 09/09/18 documented as of this encounter
--- OUTSIDE RECORDS SUMMARY | 2025-07-19 14:40 | XMS_ITS | Encounter Summary ---
Author Organization [employer] Address 75 [facility] 7 [place] [address] Care Team Providers Care Food Service Aide Name Role Phone Renee Garvey MD Primary Care Provider [phone] Reason for Visit * Reason Onset Date Comments DR JOHNSON PT 06/22/2025 Encounter Details Date Type Department Care Team ([facility] st Contact Info) Description 06/22/2025 Telephone [facility] [address] [place] [address] Neal Johnson DDS [address] [place] [address] DR JOHNSON PT Social History Tobacco Use Types Packs/Day Years [...] encounter Miscellaneous Notes * Telephone Encounter - Itzel Waller - 06/22/2025 10:21 AM EDT PT is requesting for script to be sent to pharmacy. Pt left side is swollen and throbbing. documented in this encounter Plan of Treatment Not on file documented as of this encounter Visit Diagnoses Not on filedocumented in this encounter Additional Health Concerns Assessment Noted Time PHQ-9 Depression Total Score: 6 12/14/19 23 2:22 PM EDT documented as of this encounter Care Teams Food Service Aide Relationship Specialty Start Date End Date Renee Garvey MD [address] [place] [address] PCP - General Family Medicine 09/09/18 documented as of this encounter
--- OUTSIDE RECORDS SUMMARY | 2025-07-19 14:40 | XMS_ITS | Clinical Summary ---
Author Organization [employer] Address [address] [facility] 7t [place] [address] Care Team Providers Care Mobility Engineer Name Role Phone Renee Garvey MD Primary Care Provider [phone] Allergies No known active allergies Medications * This document contains information received from the source organization and may not represent a complete record from that organization. glucose blood (FREESTYLE LITE) test strip 1 strip every 6 (six) hours. 11/24/19 20 Active busPIRone (Buspar) 5 MG tablet TAKE ONE TABLET TWICE DAILY 60 tablet 5 09/07/20 24 Active doxycycline (Monodox) 100 MG capsule One twice a day for 14 days. Take with at least 8 ounces (large glass) of water, do not lie down for 30 minutes after 28 capsule 09/21/19 25 Active levothyroxine (Synthroid, Levoxyl) 125 MCG tablet TAKE ONE TABLET EVERY DAY 90 tablet 3 12/08/19 25 Active insulin glargine (Lantus) 100 UNIT/ML injection inject 25 units by Subcutaneous route AT BEDTIME 10 mL 12/08/19 25 Active Insulin Lispro (HumaLOG) 100 UNIT/ML solution Inject 0.1-0.15 mL (10-15 Units) under the skin 3 times daily. 10 mL 12/08/19 25 Active traZODone (Desyrel) 100 MG tablet TAKE ONE TABLET AT BEDTIME 30 tablet 5 01/06/20 25 Active atorvastatin (Lipitor) 10 MG tablet Take 1 tablet (10 mg) by mouth Once per day. 30 tablet 02/05/20 25 026 Active metroNIDAZOLE (Flagyl) 500 MG tablet Take 1 tab orally bid for 1 week 14 tablet 1 02/05/20 Active FLUoxetine (PROzac) 20 MG capsule TAKE ONE CAPSULE EVERY MORNING 30 capsule 5 05/26/20 25 Active topiramate 50 MG tablet TAKE ONE TABLET DAILY 30 tablet 3 06/21/20 25 Active ibuprofen 600 MG tablet Take 1 tablet (600 mg) by mouth every 6 (six) hours if needed for mild pain for up to 20 doses. 20 tablet 06/21/20 25 Active acetaminophen (Tylenol) 500 MG tablet Take 1 tablet (500 mg) by mouth every 6 (six) hours if needed for mild pain for up to 20 doses. 20 tablet 06/21/20 25 Active Continuous Glucose Sensor (FreeStyle Agnieszka 2 Sensor) misc USE DIRECTED AND CHANGE EVERY 14 DAYS 2 each 2 07/08/20 Active Continuous Glucose Studio Camera Operator (FreeStyle Agnieszka 2 Lily) device USE DIRECTED 1 each 07/08/20 Active amoxicillin (Amoxil) 500 MG capsule Take 1 capsule (500 mg) by mouth every 8 (eight) hours for 7 days. 21 capsule 07/12/20 25 Active pseudoephedri ne (Sudafed) 30 MG tabletIndicat ions:Acute cough Take 1 tablet (30 mg) by mouth every 4 (four) hours if needed for congestion for up to 10 days. 30 tablet 07/14/20 25 Active Omeprazole 20 MG tablet delayed-relea seIndications :Acute cough Take 1 tablet (20 mg) by mouth Once per day. 30 tablet 1 07/14/20 Active topiramate (Topamax) 50 MG tablet Take 1 tablet (50 mg) by mouth Once per day. 30 tablet 3 02/05/20 25 Discontinued Continuous Glucose Sensor (FreeStyle Agnieszka 2 Sensor) misc USE DIRECTED AND CHANGE EVERY 14 DAYS 2 each 2 04/22/20 25 Discontinued(R eorder (will not trigger notification to Pharmacy)) Active Problems Problem Noted Date Diagnosed Date [...] Encounters Date Type Department Care Team Description 07/14/2025 2:20 PM EST Office Visit [facility] [address] [place] [address] Akil Pérez MD Acute cough (Primary Dx); Gastroesophageal reflux disease without esophagitis 07/14/2025 Telephone [facility] [address] [place] [address] Renee Garvey MD Appointment Request 07/14/2025 Travel 07/13/2025 Travel 07/12/2025 10:00 AM EST Office Visit [facility] [address] [place] [address] Neal Enamorado DDS 07/12/2025 Telephone [facility] [address] [place] [address] Neal Enamorado DDS 07/12/2025 Telephone [facility] [address] [place] [address] Renee Garvey MD Nurse Triage 07/11/2025 Travel 07/08/2025 Refill [facility] [address] [place] [address] Renee Garvey MD 07/08/2025 Telephone [facility] [address] [place] [address] Renee Garvey MD new script 06/22/2025 Telephone [facility] [address] [place] [address] VARGAS PT 06/21/2025 3:00 PM EDT Office Visit [facility] [address] [place] [address] Vincent Salvador 06/20/2025 Refill [facility] [address] [place] [address] Renee Garvey MD 05/28/2025 Refill [facility] [address] [facility] [place] [address] Renee Garvey MD 05/26/2025 Refill [facility] [address] Renee Garvey MD 04/29/2025 Travel 04/21/2025 Refill [facility] [address] [place] [address] Renee Garvey MD from Last 3 Months Immunizations Immunization Administration Dates Next Due Influenza injectable quadriv [...] Mass Index 20.05 07/14/2025 2:17 PM EST Plan of Treatment Health Maintenance Due Date Last Done Comments Diabetes: Foot Exam 1991 Alcohol/Substance Use Screening 1993 Family Planning (PISQ) 02/29/1996 HPV Vaccines (1 - 3-dose series) 02/29/1996 Hepatitis B Vaccines (1 of 3 - 19+ 3-dose series) 02/29/2000 Pneumococcal Vaccine: Pediatrics (0 to 5 Years) and At-Risk Patients (6 to 49) Years (2 of 2 - PCV) 12/24/2019 12/23/2018 Depression Screening 12/14/2023 12/13/2022, 12/14/19 23 SDOH Screening 12/14/2023 12/13/2022 Dental Oral Exam 12/16/2024 06/16/2024, 09/25/2022 Dental Prophylaxis 12/16/2024 06/16/2024, 09/25/2022 Diabetes: Hemoglobin A1C 03/18/2025 025, 02/11/2024, 10/23/2023, Additional history exists COVID-19 Vaccine ( season) 2025 10/20/2021, 01/23/2021, 01/02/2021 Influenza Vaccine (#1) 2025 , 05/24/2020, 06/26/2019, Additional history exists Diabetes: Urine Protein Screening 12/24/2025 12/24/2024, 02/16/2022, 07/13/2020 Lipid Panel 12/24/2025 12/24/2024, 12/09, 02/16/2022, Additional history exists Disability Screening 01/28/2026 01/28/2025 Pap Smear 05/28/2026 05/28/2023, 05/24/2020 Dental X-Ray: Bitewings 06/22/2026 06/21/20 25, 06/16/2024, 09/25/2022 Tobacco Screening 07/14/2026 07/14/2025 Mammogram 07/22/2026 07/22/2024, 11/0 04/2023, 07/12/2022, Additional [...] patient's age to complete this topic Meningococcal B Vaccine Aged Out No l onger eligible based on patient's age to complete [...] Routine 07/14/2025 2:45 PM EST Acute cough 21 ENDODONTIC THERAPY, PREMOLAR TOOTH Routine 07/12/2025 10:00 AM EST CASE PRESENTATION, DETAILED AND EXTENSIVE TREATMENT PLANNING Routine 07/12/2025 10:00 AM EST 21 INTRAORAL - PERIAPICAL FIRST RADIOGRAPHIC IMAGE Routine 06/21/2025 3:00 PM EDT 21 LIMITED ORAL EVALUATION - PROBLEM FOCUSED Routine 06/21/2025 3:00 PM EDT CASE PRESENTATION, DETAILED AND EXTENSIVE TREATMENT PLANNING Routine 06/21/2025 3:00 PM EDT BITEWING - SINGLE RADIOGRAPHIC IMAGE Routine 06/21/2025 3:00 PM EDT ALBUMIN, RANDOM URINE W/CREATININE Routine 12/24/2024 8:56 AM EDT Type I diabetes mellitus, well controlled (CMS/HCC) H/O ETOH abuse LIPID PANEL, STANDARD Routine 12/24/2024 8:50 AM EDT Type I diabetes mellitus, well controlled (CMS/HCC) H/O ETOH abuse POCT GLYCATED HEMOGLOBIN, TOTAL Routine 12/17/2024 9:40 AM EDT Type I diabetes mellitus, well controlled (CMS/HCC) BI MAMMOGRAM SCREENING TOMOSYNTHESIS BILATERAL Routine 07/22/2024 [...] Recently Relevant to Health Maintenance Results * XR Chest 2 Views (07/19/2025 1:09 PM EST) Anatomical Region Laterality Modality Chest Radiographic Mary ging 07/19/2025 1:09 PM EST Narrative 07/19/2025 1:33 PM EST [address] [address] XRay Report Signed Patient: Korin Dutton MR#: [id number] : 1980 Acct:[id number] Age/Sex: 45 / F ADM Date: 07/19/25 Loc: HO.HHCX Attending Dr: Akil Pérez MD Ordering Physician: Akil Pérez MD Date of Service: 07/19/25 Procedure(s): XR chest 2V Accession Number(s): [id number] cc: Akil Pérez MD; Renee Garvey MD [...] Schuyler Horowitz MD 07/19/2025 01:31 PM EST Dictated By: Schuyler Horowitz MD Signed By: <Electronically signed by Schuyler Horowitz MD in OV> 07/19/25 1331 DD/ 1309 TD/TT: 07/19/25 1310 Aerospace Physiological Technician: Procedure Note Donotuseinterpreter, Image - 07/19/[address] [address] XRay Report Signed Patient: Daisy DuttonynaMR#: [id number] : 1980Acct:[id number] Age/Sex: 45 / FADM Date: 07/19/25 Loc: HO.HHCX Attending Dr: Akil Pérez MD Ordering Physician: Akil Pérez MD Date of Service: 07/19/25 Procedure(s): XR chest 2V Accession Number(s): [id number] cc: Akil Pérez MD; Renee Garvey MD [...] 07/19/25 1331 DD/ 1309 TD/TT: 07/19/25 1310 Aerospace Physiological Technician: Akil Pérez MD IMG XR PROCEDURES Edited Re sult - Final * POCT Rapid Covid-19 BinaxNOW (07/14/2025 2:47 PM EST) [facility] Rapid COVID Ag Negative QC Media Lot # [id number] Lot# Expiration Date Swab 07/14/2025 2:47 PM EST Akil Pérez MD POINT OF CARE TEST ENTER/ED IT ORDERABLES Final Result * POCT Rapid Influenza A OSOM (07/14/2025 2:46 PM EST) [facility] Rapid Influenza A Ag Negative Negative, Indeterminate QC Media Lot # [id number] Lot# Expiration Date Swab Nasopharyngeal structure / Unknown 07/14/2025 2:46 PM EST Akil Pérez MD POINT OF CARE TEST ENTER/ED IT ORDERABLES Final Result * POCT Rapid Influenza B OSOM (07/14/2025 2:45 PM EST) [facility] Rapid Influenza B Ag Negative Negative, Indeterminate QC Media Lot # [id number] Lot# Expiration Date Swab 07/14/2025 2:45 PM EST Akil Pérez MD POINT OF CARE TEST ENTER/ED IT ORDERABLES Final Result * Albumin, Random Urine W/Creatinine (12/24/2024 8:56 AM EDT) [facility] Creatinine, Urine 97.21 mg/dL [facility] Microalbumin Urine 9.0 mg/L [facility] Microalbum Creatinine Ratio Ur 9.2 <30 ug/mg cr [facility] Comment:Albumin/Creatinine R atio Reference Ranges: Normal: < 30 ug/mg creatinine Microalbuminuria: 30 - 300 ug/mg creatinineClinical Albuminuria: > 300 ug/mg creatinine Urine (Urine, Random) 12/24/2024 8:56 AM EDT 12/24/2024 2:03 PM EDT us Renee Garvey MD LAB URINE ORDERABLES Final Re sult [facility] [address] [place] [phone] * (ABNORMAL) Lipid Panel, Standard (12/24/2024 8:50 AM EDT) Triglycerides 55 <150 mg/dL [facility] Comment:Desirable Triglyceri de: less than 150 mg/dLBorderline High Triglyceride 150-199 mg/dLHigh Triglyceride: 200-499 mg/dLVery High Triglyceride: greater than or equal to 5OO mg/dL Cholesterol 236(H) <200 mg/dL [facility] Comment:Desirable Cholestero l: less than 200 mg/dLBorderline High Cholesterol: 200-239 mg/dLHigh Cholesterol: greater than 239 mg/dL LDL Cholesterol Calculated 125(H) <100 mg/dL [facility] Comment:Desirable LDL: less than 100 mg/dLNear Optimal/Above Optimal LDL: 110- 129 mg/dLBorderline High LDL: 130-159 mg/dLHigh LDL: 160-189 mg/dLVery High LDL: greater than or equal to 190 mg/dL HDL Cholesterol 100 >40 mg/dL [facility] Comment:Desirable HDL: great er than 40 mg/dL Note: This HDL assay may give artificially low results in patients with liver disease. Blood Venous blood specimen / Unknown 12/24/2024 8:50 AM EDT 12/24/2024 2:13 PM EDT Renee Garvey MD LAB BLOOD ORDERABLES Final Re sult [facility] [address] [place] [phone] * (ABNORMAL) POCT HGB A1C (12/17/2024 [...] PM EST Narrative 07/31/2024 8:49 AM EST [address] [place] [address] Mammography Report Signed Patient: Korin Dutton MR#: [id number] : 1980 Acct:[id number] Age/Sex: 44 / F ADM Date: 07/22/24 Loc: HO.MAMMO Attending Dr: Renee Garvey MD Ordering Physician: Renee Garvey MD Results: 2Be nign Findings Date of Service: 07/22/24 Follow Up: 1 Year From Orig ina Mammogram Procedure(s): MM tomosynthesis screening BI Accession Number(s): [id number] cc: Renee Garvey MD EXAMINATION: MM SCREENING [...] 07/31/24 0845 DD/ 1520 TD/TT: 07/22/24 1530 Aerospace Physiological Technician: Procedure Note Donotuseinterpreter, Image - 07/31/2024 [facility] [address] [place] [address] Mammography Report Signed Patient: Daisy DuttonynaMR#: [id number] : 1980Acct:[id number] Age/Sex: 44 / FADM Date: 07/22/24 Loc: HO.MAMMO Attending Dr: Renee Garvey MD Ordering Physician: Renee Garvey MDResults: 2Be nign Findings Date of Service: 07/22/24Follow Up: 1 Year From [facility] ina Mammogram Procedure(s): MM tomosynthesis screening BI Accession Number(s): [id number] cc: Renee Garvey MD EXAMINATION: MM SCREENING [...] 07/31/24 0845 DD/ 1520 TD/TT: 07/22/24 1530 Aerospace Physiological Technician: Renee Garvey MD IMG BI PROCEDURES Final Resul t * Hepatitis A,B,C Profile (11/07/2023 11:33 AM EST) Hepatitis A IgM Nonreactive Nonreactive [facility] Comment:IgM antibodies to SHAW V not detected; does not exclude earlyacute or recovered HAV infection. ~Hepatitis B Surface Antibody REACTIVE Nonreactive [facility] Comment:REACTIVE: > 11.99 mI U/mL Hepatitis B Core Antibody Nonreactive Nonreactive [facility] Hepatitis C Antibody Nonreactive Nonreactive [facility] Comment:Antibodies to HCV no t detected; does not exclude early acuteHCV infection. Hepatitis B Surface Ag Negative Negative [facility] Blood Venous blood specimen / Unknown 11/07/2023 11:33 AM EST 11/07/2023 2:03 PM EST Renee Garvey MD LAB BLOOD ORDERABLES Final Re sult [facility] [address] [place] [phone] * HIV-1/2 Antigen and Antibodies, Fourth Generation, with Reflexes (11/07/2023 11:33 AM EST) HIV AB/AG Nonreactive Nonreactive [facility] Comment:HIV-1 p24 Ag and/or HIV-1/HIV-2 Ab not detected.A test result that is nonreactive does not exclude thepossibility of exposure to or infection with HIV-1 and/orHIV-2. Nonreactive results in this assay for individualswith prior exposure to HIV-1 and/or HIV-2 may be due toantigen and antibody levels that are below the limit ofdetection of this assay.The [employer] HIV Ag/Ab Combo assay result andsupplemental assay results should be interpreted inconjunction with the patient's clinical presentation,history and other laboratory results. If the results areinconsistent with clinical evidence, additional testing issuggested to confirm the result. Blood Venous blood specimen / Unknown 11/07/2023 11:33 AM EST 11/07/2023 2:03 PM EST us Renee Garvey MD LAB BLOOD ORDERABLES Final Re sult [facility] [address] [place] [phone] * HPV mRNA E6/E7 w/Reflex to HPV Genotypes 16, 18/45 (05/28/2023 12:55 PM EDT) HPV nRNA E6/E7 Not Detected Not Detected [facility] Comment:Methodology: Transcr iption-Mediated AmplificationThis assay detects E6/E7 viral messenger RNA (mRNA) from 14high-risk HPV types (16,18,31,33,35,39,45,51,52,56,58,59,66,68).Cervical sources are required for HPV testing.If a vaginal source from a patient who has had atotal hysterectomy with removal of cervix wassubmitted, please contact the testing laboratoryfor alternative testing options.For additional information, please refer tohttp://education.BlackJet/faq/DMV732o4(This link if provided for information/educational purposes only.)THIS TEST WAS PERFORMED AT:[facility] [place] [phone] FOWLER MD HPV mRNA E6/E7 TNP [facility] HPV 16 RNA TNP [facility] HPV 18/45 RNA TNP [facility] 05/28/2023 12:5 5 PM EDT 05/29/2023 9:15 AM EDT us Quang CONTRERAS LAB CYTOLOGY ORDERABLES F inal Result [facility] [address] [place] [phone] * Pap Smear (05/28/2023 12:55 PM EDT) 05/28/2023 12:5 5 PM EDT 05/29/2023 9:15 AM EDT Narrative [facility] - 06/04/2023 2:03 PM EDT ----- ------- Name: Korin Dutton Age/Sex: 43/F : 1980 Unit#: [id number] Attend Dr: QUANG CUNNINGHAM CNM Re05/28/23 Status: DEP REF Location: HO.CHCLNP Disch: ----- ------- SPEC : [id number] RECD: 05/29/23 STATUS: SONU GARCIA NUM: [id number] KASH: 05/28/23-[address] [facility] [address]: QUANG CUNNINGHAM CNM ENTERED: 05/29/23-1012 SP TYPE: Pap Smr OTHR DR: ORDERED: Pap Smear Interpretation Satisfactory for evaluation. No endocervical cells seen. Negative for intraepithelial lesion or malignancy. HPV mRNA E6/E7: NOT DETECTED This assay detects E6/E7 viral messenger RNA (mRNA) from 14 high-risk HPV types (16, 18, 31, 33, 35, 39, 45, 51, 52, 56, 58, 59, 66, 68) HPV testing performed by [employer], [place], [place]. See reference laboratory portion of the EMR for entire report. Clinical Information LMP: Unknown date Previous PAP test: 2019, WNL Material Received ThinPrep-Cervical ----- ------- Signed (signature on file) Ly Mendoza Tobias 06/04/23 1403 ----- ------- END OF REPORT Quang Cunningham CNM LAB CYTOLOGY ORDERABLES F inal Result [facility] [address] [place] [phone] from Last 3 Months or Most Recently Relevant to Health Maintenance Insurance [place] [facility] [facility] MEDICAID LIMITED ADULT DENTAL - HSN FULL (MEDICAID) Care Teams Mobility Engineer Relationship Specialty Start Date End Date Renee Garvey MD [address] [place] [phone] PCP - General Family Medicine 09/09/18
--- OUTSIDE RECORDS SUMMARY | 2025-07-19 14:40 | XMS_ITS | Encounter Summary ---
Author Organization [employer] Address [address] [place] [address] [address] [place] [address] Care Team Providers Care Land Leasing Information Clerk Name Role Phone Renee Garvey MD Primary Care Provider [phone] Encounter Details Date Type Department Care Team ([facility] st Contact Info) Description 08/27/2022 Abstract [facility] [address] [place], [place] [phone] Christian Harrison, DDS [address] [place] [address] Social History Tobacco Use Types Packs/Day Years [...] FILLING Routine 08/27/2022 12:00 AM EST 25 [employer] FILLING Routine 08/27/2022 12:00 AM EST [...] on filedocumented in this encounter Care Teams Land Leasing Information Clerk Relationship Specialty Start Date End Date Renee Garvey MD [address] [place] [phone] PCP - General Family Medicine 09/09/18 documented as of this encounter
--- OUTSIDE RECORDS SUMMARY | 2025-07-19 14:40 | XMS_ITS | Encounter Summary ---
Author Organization [employer] Address [address] [facility] 7t [place] [address] Care Team Providers Care Detailer Pharmaceuticals Name Role Phone Renee Garvey MD Primary Care Provider [phone] Encounter Details Date Type Department Care Team (Latest Contact Info) Description 07/14/2025 Travel Social History Tobacco Use Types Packs/Day Years [...] documented as of this encounter Care Teams Detailer Pharmaceuticals Relationship Specialty Start Date End Date Renee Garvey MD [address] [place] [phone] PCP - General Family Medicine 09/09/18 documented as of this encounter
--- OUTSIDE RECORDS SUMMARY | 2025-07-19 14:40 | XMS_ITS | Encounter Summary ---
Author Organization [employer] Address [address] [address] Care Team Providers Care Cans Vacuum Tester Name Role Phone Renee Garvey MD Primary Care Provider [phone] Reason for Visit * Reason Onset Date Comments Medication Question 10/23/2023 Encounter Details Date Type Department Care Team ([facility] Contact Info) Description 10/23/2023 Telephone [facility] [address] [place], [place] [phone] Renee Garvey MD [address] [place] [address] Medication Question Social History Tobacco Use Types [...] AM EDT documented as of this encounter Functional Status * Over the last 2 weeks, how often have you been bothered by any of the following problems? Question Answer Date of Assessment Author Feeling nervous, anxious, or on edge 3 10/23/2023 12:07 PM Mars Do [place] Not being able to stop or control worrying 3 10/23/2023 12:07 PM Mars Do [place] Worrying too much about different things 3 10/23/2023 12:07 PM Mars Do [place] Trouble relaxing 3 10/23/2023 12:07 PM Alessandra Do [place] Being so restless that it is hard to sit still 3 10/23/2023 12:07 PM Mars Do [place] Becoming easily annoyed or irritable 3 10/23/2023 12:07 PM Mars Do [place] Feeling afraid as if somethi ng awful might happen 3 10/23/2023 12:07 PM Mars Do [place] AARON-7 Total Score 21 10/23/2023 12:07 PM Alessandra Do [place] documented as of this encounter Miscellaneous Notes [...] documented as of this encounter Care Teams Cans Vacuum Tester Relationship Specialty Start Date End Date Renee Garvey MD [address] [place] [phone] PCP - General Family Medicine 09/09/18 documented as of this encounter
--- OUTSIDE RECORDS SUMMARY | 2025-07-19 14:40 | XMS_ITS | Encounter Summary ---
Author Organization [employer] Address 75 [facility] 7t [place] [address] Care Team Providers Care Rn Imaging Name Role Phone Renee Garvey MD Primary Care Provider [phone] Encounter Details Date Type Department Care Team ([facility] st Contact Info) Description 08/27/2022 Abstract [facility] ADULT D[facility] [address] [place], [place] [phone] Christian Harrison, DAPHNES [address] [place] [address] Social History Tobacco Use Types Packs/Day Years [...] on filedocumented in this encounter Care Teams Rn Imaging Relationship Specialty Start Date End Date Renee Garvey MD [address] [place] [address] PCP - General Family Medicine 09/09/18 documented as of this encounter
== END 2025-07-19 12:27 | disposition home or self-care (01) ==
LOC: HO.HHCX 12:26
PROVIDERS: PCP Pediatrics; Visit Provider Internal Medicine
DX: R05.1 Acute cough (principal)
CPT/HCPCS: 71046

== ENCOUNTER → 2025-07-19 12:33 | Outpatient (BNV) | payer SELFPAY | PROVIDERS: PCP Pediatrics; Visit Provider Radiology Diagnostic Radiology | DX: R05.9 Cough, unspecified (principal) | CPT/HCPCS: 71046 ==

== ENCOUNTER 2025-07-28 14:35 | Outpatient (REF) | payer SELFPAY ==
--- NOTE | ~2025-07-28 | MM_ITS ---
EXAMINATION: MM SCREENING DIGITAL BREAST TOMOSYNTHESIS, BILATERAL CLINICAL INFORMATION: Screening. Asymptomatic. COMPARISON: Mammography: Comparison is made with available priors TECHNIQUE: Digital breast mammography with tomosynthesis is performed in both the craniocaudal and mediolateral oblique views along with computer-aided detection (CAD). FINDINGS: The breasts are heterogeneously dense, which may obscure small masses. Right marker clip. There are no significant masses, abnormal calcifications, or other abnormalities. MM/MM tomosynthesis screening BI IMPRESSION: No mammographic evidence of malignancy. ASSESSMENT: BI-RADS Category 2: Benign RECOMMENDATION: Routine annual mammography screening. 1 year F/U This examination should not preclude the clinical evaluation of a suspicious palpable abnormality. This patient's information was entered into a reminder system with a target due date for their next mammogram. Electronically signed by: Kelley Mckeon DO 07/29/2025 10:48 AM [facility]
--- OUTSIDE RECORDS SUMMARY | 2025-07-29 02:59 | XMS_ITS | Encounter Summary ---
Author Organization [employer] Address 75 [facility] 7 [place] [address] Care Team Providers Care Mattress Filling Machine Tender Name Role Phone Renee Garvey MD Primary Care Provider [phone] Reason for Visit * Reason Onset Date Comments DR JOHNSON PT 06/22/2025 Encounter Details Date Type Department Care Team ([facility] st Contact Info) Description 06/22/2025 Telephone [facility] ADULT D[facility]AL [address] [place] [address] Neal Johnson DDS [address] [place] [address] DR JOHNSON PT Social History Tobacco Use [...] documented as of this encounter Care Teams Mattress Filling Machine Tender Relationship Specialty Start Date End Date Renee Garvey MD [address] [place] [address] PCP - General Family Medicine 09/09/18 documented as of this encounter
--- OUTSIDE RECORDS SUMMARY | 2025-07-29 02:59 | XMS_ITS | Encounter Summary ---
Author Organization [employer] Address 75 [facility] 7t [place] [address] Care Team Providers Care Interventional Radiologist Name Role Phone Reene Garvey MD Primary Care Provider [phone] Encounter Details Date Type Department Care Team ([facility] st Contact Info) Description 08/27/2022 Abstract [facility] ADULT DENTAL [address] [place], [place] [phone] Christian Harrison, DAPHNES [address] [place] [address] Social History Tobacco Use Types Packs/Day Years [...] on filedocumented in this encounter Care Teams Interventional Radiologist Relationship Specialty Start Date End Date Renee Garvey MD [address] [place] [address] PCP - General Family Medicine 09/09/18 documented as of this encounter
--- OUTSIDE RECORDS SUMMARY | 2025-07-29 02:59 | XMS_ITS | Encounter Summary ---
Author Organization [employer] Address [address] [address] Care Team Providers Care Plastic Cnc Machine Operator Name Role Phone Renee Garvey MD Primary Care Provider [phone] Reason for Visit * Reason Onset Date Comments Medication Question 10/23/2023 Encounter Details Date Type Department Care Team ([facility] Contact Info) Description 10/23/[address] [facility] CHC MED & PEDS [address] [place], [place] [phone] Renee Garvey MD [address] [place] [address] Medication Question Social History Tobacco Use Types [...] documented as of this encounter Care Teams Plastic Cnc Machine Operator Relationship Specialty Start Date End Date Renee Garvey MD [address] [place] [address] PCP - General Family Medicine 09/09/18 documented as of this encounter
--- OUTSIDE RECORDS SUMMARY | 2025-07-29 02:59 | XMS_ITS | Encounter Summary ---
Author Organization [employer] Address 75 [facility] 7 [place] [address] Care Team Providers Care Mechanical Commissioning Engineer Name Role Phone Renee Garvey MD Primary Care Provider [phone] Reason for Visit * Reason Comments Med Refill Encounter Details Date Type Department Care Team ([facility] st Contact Info) Description 05/28/2025 Refill [facility] CHC MED & PEDS [address] [place], [place] [phone] Renee Garvey MD [address] [place] [address] Social History Tobacco Use Types Packs/Day Years [...] documented as of this encounter Care Teams Mechanical Commissioning Engineer Relationship Specialty Start Date End Date Renee Garvey MD [address] [place] [address] PCP - General Family Medicine 09/09/18 documented as of this encounter
--- OUTSIDE RECORDS SUMMARY | 2025-07-29 02:59 | XMS_ITS | Encounter Summary ---
Author Organization [employer] Address [address] [place] [address] 7 [place] [address] Care Team Providers Care Territory Service Representative Name Role Phone Renee Garvey MD Primary Care Provider [phone] Encounter Details Date Type Department Care Team ([facility] st Contact Info) Description 08/27/2022 Abstract [facility] ADULT DENTAL [address] [place], [place] [phone] Christian Harrison, DDS [address] [place] [address] Social History Tobacco Use Types Packs/Day Years [...] FILLING Routine 08/27/2022 12:00 AM EST 25 [place] COMPOSITE FILLING Routine 08/27/2022 12:00 AM EST [...] on filedocumented in this encounter Care Teams Territory Service Representative Relationship Specialty Start Date End Date Renee Garvey MD [address] [place] [address] PCP - General Family Medicine 09/09/18 documented as of this encounter
--- OUTSIDE RECORDS SUMMARY | 2025-07-29 02:59 | XMS_ITS | Encounter Summary ---
Author Organization [employer] Address [address] [place] [address] Care Team Providers Care Metal Drill Press Operator Name Role Phone Renee Garvey MD Primary Care Provider [phone] Encounter Details Date Type Department Care Team [...] on filedocumented in this encounter Care Teams Metal Drill Press Operator Relationship Specialty Start Date End Date Renee Garvey MD [address] [place] [address] PCP - General Family Medicine 09/09/18 documented as of this encounter
--- OUTSIDE RECORDS SUMMARY | 2025-07-29 03:00 | XMS_ITS | Encounter Summary ---
Author Organization [employer] Address 75 [facility] 7 [place] [address] Care Team Providers Care Hi Lift Operator Name Role Phone Renee Garvey MD Primary Care Provider [phone] Encounter Details Date Type Department Care Team ([facility] Contact Info) Description 07/20/2025 Results Follow-Up [facility] CHC MED & PEDS [address] [place], [place] [phone] Renee Garvey MD 505 [place] [address] XR Chest 2 Views Social History Tobacco Use Types Packs/Day Years [...] documented as of this encounter Care Teams Hi Lift Operator Relationship Specialty Start Date End Date Renee Garvey MD [address] [place] [address] PCP - General Family Medicine 09/09/18 documented as of this encounter
--- OUTSIDE RECORDS SUMMARY | 2025-07-29 03:00 | XMS_ITS | Encounter Summary ---
Author Organization [employer] Address 75 [facility] 7t [place] [address] Care Team Providers Care Cell Feed Department Supervisor Name Role Phone Renee Garvey MD Primary Care Provider [phone] Encounter Details Date Type Department Care Team ([facility] Contact Info) Description 09/23/2024 Orders Only [facility] MED[facility] [address] [place], [place] [phone] Leilani Paredes CNM [address] [place] [address] Abnormal uterine bleeding (AUB) (Primary Dx); Screening [...] documented as of this encounter Care Teams Cell Feed Department Supervisor Relationship Specialty Start Date End Date Renee Garvey MD [address] [place] [address] PCP - General Family Medicine 09/09/18 documented as of this encounter
--- OUTSIDE RECORDS SUMMARY | 2025-07-29 03:00 | XMS_ITS | Clinical Summary ---
Author Organization [employer] Address 75 [facility] 7t [place] [address] Care Team Providers Care Radio Announcer Name Role Phone Renee Garvey MD Primary Care Provider [phone] Allergies No known active allergies Medications * [...] for 1 week 14 tablet 1 02/05/20 25 Active FLUoxetine (PROzac) 20 MG capsule TAKE [...] EVERY 14 DAYS 2 each 2 07/08/20 25 Active Continuous Glucose Shed Hand (FreeStyle Agnieszka 2 [place]ia) device USE DIRECTED 1 each 07/08/20 25 Active pseudoephedri ne (Sudafed) 30 MG tabletIndicat ions:Acute cough Take 1 tablet (30 mg) by mouth every 4 (four) hours if needed for congestion for up to 10 days. 30 tablet 07/14/20 25 Active Omeprazole 20 MG tablet delayed-relea seIndications :Acute cough Take 1 tablet (20 mg) by mouth Once per day. 30 tablet 1 07/14/20 25 Active Continuous Glucose Sensor (FreeStyle Agnieszka 2 Sensor) misc USE DIRECTED AND CHANGE EVERY 14 DAYS 2 each 2 04/22/20 25 025 Discontinued(R eorder (will not trigger notification to Pharmacy)) amoxicillin (Amoxil) 500 MG capsule Take 1 capsule (500 mg) by mouth every 8 (eight) hours for 7 days. 21 capsule 07/12/20 25 025 Active Problems Problem Noted Date Diagnosed Date [...] Encounters Date Type Department Care Team Description 07/20/2025 Results Follow-Up [facility] MED & PED[facility] [address] [place] [address] Renee Garvey MD XR Chest 2 Views 07/14/2025 2:20 PM EST Office Visit [facility] [address] [place] [address] Akil Pérez MD Acute cough (Primary Dx); Gastroesophageal reflux disease without esophagitis 07/14/2025 Telephone [facility] [address] [place] [address] Renee Garvey MD Appointment Request 07/14/2025 Travel 07/13/2025 Travel 07/12/2025 10:00 AM EST Office Visit [facility] ADULT [facility] [address] [place] [address] Neal Enamorado DDS 07/12/2025 Telephone [facility] [address] [place] [address] Neal Enamorado DDS 07/12/2025 Telephone [facility] MED[facility] [address] [place] [address] Renee Garvey MD Nurse Triage 07/11/2025 Travel 07/08/2025 Refill [facility] [address] [place] [address] Renee Garvey MD 07/08/2025 Telephone [facility] [address] [place] [address] Renee Garvey MD new script 06/22/2025 Telephone [facility] ADULT DENTAL [address] [place] [address] VARGAS PT 06/21/2025 3:00 PM EDT Office Visit [facility] [address] [place] [address] Vincent Salvador 06/20/2025 Refill [facility] [address] [place] [address] Renee Garvey MD 05/28/2025 Refill [facility] CHC MED & PEDS [address] [place] [address] Renee Garvey MD 05/26/2025 Refill [facility] CHC MED & PEDS [address] [place] [address] Renee Garvey MD 04/29/2025 Travel from Last 3 Months Immunizations Immunization Administration [...] Tobacco Screening 07/14/2026 07/14/2025 Mammogram 07/22/2026 07/22/2024, 04/2023, 07/12/2022, Additional history exists Eye Exam [...] EDT Type I diabetes mellitus, well controlled (CMS/[facility]) H/O ETOH abuse LIPID PANEL, STANDARD Routine [...] PM EST Narrative 07/19/2025 1:33 PM EST [address] [address] XRay Report Signed Patient: Korin Dutton MR#: [id number] : 1980 Acct:[id number] Age/Sex: 45 / F ADM Date: 07/19/25 Loc: HO.HHCX Attending Dr: Akil Pérez MD Ordering Physician: Akil Pérez MD Date of Service: 07/19/25 Procedure(s): XR chest 2V Accession Number(s): [id number] cc: Akil Pérez MD; Renee Garvey MD [...] 07/19/25 1331 DD/ 1309 TD/TT: 07/19/25 1310 Homogenizer Operator: Procedure Note Donotuseinterpreter, Image - 07/19/2025 [place] [address] XRay Report Signed Patient: Daisy DuttonynaMR#: [id number] : 1980Acct:[id number] Age/Sex: 45 / FADM Date: 07/19/25 Loc: HO.HHCX Attending Dr: Akil Pérez MD Ordering Physician: Akil Pérez MD Date of Service: 07/19/25 Procedure(s): XR chest 2V Accession Number(s): [id number] cc: Akil Pérez MD; Renee Garvey MD [...] 07/19/25 1331 DD/ 1309 TD/TT: 07/19/25 1310 Homogenizer Operator: Akil Pérez MD IMG XR PROCEDURES Edited Re sult - Final * POCT Rapid Covid-19 BinaxNOW (07/14/2025 2:47 PM EST) [facility] Rapid COVID Ag Negative QC Media Lot # [id number] Lot# Expiration Date Swab 07/14/2025 2:47 PM EST Akil Pérez MD POINT OF CARE TEST ENTER/ED IT ORDERABLES Final Result * POCT Rapid Influenza A OSOM (07/14/2025 2:46 PM EST) [facility] Rapid Influenza A Ag Negative Negative, Indeterminate QC Media Lot # [id number] Lot# Expiration Date Swab Nasopharyngeal structure / Unknown 07/14/2025 2:46 PM EST Akil Pérez MD POINT OF CARE TEST ENTER/ED IT ORDERABLES Final Result * POCT Rapid Influenza B OSOM (07/14/2025 2:45 PM EST) [facility] Rapid Influenza B Ag Negative Negative, Indeterminate QC Media Lot # [id number] Lot# Expiration Date Swab 07/14/2025 2:45 PM EST Akil Pérez MD POINT OF CARE TEST ENTER/ED IT ORDERABLES Final Result * Albumin, Random Urine W/Creatinine (12/24/2024 8:56 AM EDT) [facility] Creatinine, Urine 97.21 mg/dL [facility] Microalbumin Urine 9.0 mg/L [facility] Microalbum Creatinine Ratio Ur 9.2 <30 ug/mg cr [facility] Comment:Albumin/Creatinine R atio Reference Ranges: Normal: < 30 ug/mg creatinine Microalbuminuria: 30 - 300 ug/mg creatinineClinical Albuminuria: > 300 ug/mg creatinine Urine (Urine, Random) 12/24/2024 8:56 AM EDT 12/24/2024 2:03 PM EDT us Renee Garvey MD LAB URINE ORDERABLES Final Re sult Performing Organization Address [facility] de Phone Number [facility] [address] [place] [phone] * (ABNORMAL) Lipid Panel, Standard (12/24/2024 8:50 AM EDT) Triglycerides 55 <150 mg/dL [facility] Comment:Desirable Triglyceri de: less than 150 mg/dLBorderline High Triglyceride 150-199 mg/dLHigh Triglyceride: 200-499 mg/dLVery High Triglyceride: greater than or equal to 5OO mg/dL Cholesterol 236(H) <200 mg/dL [facility] Comment:Desirable Cholestero l: less than 200 mg/dLBorderline High Cholesterol: 200-239 mg/dLHigh Cholesterol: greater than 239 mg/dL LDL Cholesterol Calculated 125(H) <100 mg/dL [facility] Comment:Desirable LDL: less than 100 mg/dLNear Optimal/Above Optimal LDL: 110- 129 mg/dLBorderline High LDL: 130-159 mg/dLHigh LDL: 160-189 mg/dLVery High LDL: greater than or equal to 190 mg/dL HDL Cholesterol 100 >40 mg/dL [facility] Comment:Desirable HDL: great er than 40 mg/dL Note: This HDL assay may give artificially low results in patients with liver disease. Blood Venous blood specimen / Unknown 12/24/2024 8:50 AM EDT 12/24/2024 2:13 PM EDT us Renee Gravey MD LAB BLOOD ORDERABLES Final Re sult Performing Organization Address City/[facility]/ZIP Co de Phone Number [facility] [address] [place] [address] [phone] * (ABNORMAL) POCT HGB A1C (12/17/2024 [...] PM EST Narrative 07/31/2024 8:49 AM EST [facility] [address] [place] [address] Mammography Report Signed Patient: Korin Dutton MR#: [id number] : 1980 Acct:[id number] Age/Sex: 44 / F ADM Date: 07/22/24 Loc: HO.MAMMO Attending Dr: Renee Garvey MD Ordering Physician: Renee Garvey MD Results: 2Be nign Findings Date of Service: 07/22/24 Follow Up: 1 Year From [facility] ina Mammogram Procedure(s): MM tomosynthesis screening BI Accession Number(s): [id number] cc: Renee Garvey MD EXAMINATION: MM SCREENING [...] 07/31/24 0845 DD/ 1520 TD/TT: 07/22/24 1530 Homogenizer Operator: Procedure Note Donotuseinterpreter, Image - 07/31/2024 [facility] [address] [place] [address] Mammography Report Signed Patient: Daisy DuttonynaMR#: [id number] : 1980Acct:[id number] Age/Sex: 44 / FADM Date: 07/22/24 Loc: HO.MAMMO Attending Dr: Renee Garvey MD Ordering Physician: Renee Garvey MDResults: 2Be nign Findings Date of Service: 07/22/24Follow Up: 1 Year From [facility] ina Mammogram Procedure(s): MM tomosynthesis screening BI Accession Number(s): [id number] cc: Renee Garvey MD EXAMINATION: MM SCREENING [...] Kelley Mckeon DO 07/31/2024 08:45 AM EST RP Dictated By: Kelley Mckeon DO Signed By: <Electronically signed by Kelley Mckeon DO in OV> 07/31/24 0845 DD/ 1520 TD/TT: 07/22/24 1530 Homogenizer Operator: Renee Garvey MD IMG BI PROCEDURES Final Resul t * Hepatitis A,B,C Profile (11/07/2023 11:33 AM EST) Hepatitis A IgM Nonreactive Nonreactive [facility] Comment:IgM antibodies to SHAW V not detected; does not exclude earlyacute or recovered HAV infection. ~Hepatitis B Surface Antibody REACTIVE Nonreactive [facility] Comment:REACTIVE: > 11.99 mI U/mL Hepatitis B Core Antibody Nonreactive Nonreactive [facility] Hepatitis C Antibody Nonreactive Nonreactive [facility] Comment:Antibodies to HCV no t detected; does not exclude early acuteHCV infection. Hepatitis B Surface Ag Negative Negative [facility] Blood Venous blood specimen / Unknown 11/07/2023 11:33 AM EST 11/07/2023 2:03 PM EST us Renee Garvey MD LAB BLOOD ORDERABLES Final Re sult [facility] [address] [place] [address] [phone] * HIV-1/2 Antigen and Antibodies, Fourth Generation, with Reflexes (11/07/2023 11:33 AM EST) HIV AB/AG Nonreactive Nonreactive [facility] Comment:HIV-1 p24 Ag and/or HIV-1/HIV-2 Ab not detected.A test result that is nonreactive does not exclude thepossibility of exposure to or infection with HIV-1 and/orHIV-2. Nonreactive results in this assay for individualswith prior exposure to HIV-1 and/or HIV-2 may be due toantigen and antibody levels that are below the limit ofdetection of this assay.The [employer] HIV Ag/Ab Combo assay result andsupplemental assay results should be interpreted inconjunction with the patient's clinical presentation,history and other laboratory results. If the results areinconsistent with clinical evidence, additional testing issuggested to confirm the result. Blood Venous blood specimen / Unknown 11/07/2023 11:33 AM EST 11/07/2023 2:03 PM EST us Renee Garvey MD LAB BLOOD ORDERABLES Final Re sult [facility] [address] [place] [phone] * HPV mRNA E6/E7 w/Reflex to HPV Genotypes 16, 18/45 (05/28/2023 12:55 PM EDT) HPV nRNA E6/E7 Not Detected Not Detected [facility] Comment:Methodology: Transcr iption-Mediated AmplificationThis assay detects E6/E7 viral messenger RNA (mRNA) from 14high-risk HPV types (16,18,31,33,35,39,45,51,52,56,58,59,66,68).Cervical sources are required for HPV testing.If a vaginal source from a patient who has had atotal hysterectomy with removal of cervix wassubmitted, please contact the testing laboratoryfor alternative testing options.For additional information, please refer [email or web address]/faq/YIM016i3(This link if provided for information/educational purposes only.)THIS TEST WAS PERFORMED AT:[facility] [place] [phone] FOWLER MD HPV mRNA E6/E7 TNP [facility] HPV 16 RNA TNP [facility] HPV 18/45 RNA TNP [facility] 05/28/2023 12:5 5 PM EDT 05/29/2023 9:15 AM EDT us Quang CONTRERAS LAB CYTOLOGY ORDERABLES F inal Result [facility] [address] [place] [phone] * Pap Smear (05/28/2023 12:55 PM EDT) 05/28/2023 12:5 5 PM EDT 05/29/2023 9:15 AM EDT Narrative [facility] - 06/04/2023 2:03 PM EDT ----- ------- Name: Korin Dutton Age/Sex: 43/F : 1980 Unit#: [id number] Attend Dr: QUANG CUNNINGHAM CNM Re05/28/23 Status: ADELAIDA RIVERO Location: HO.CHCLNP Disch: ----- ------- SPEC : [id number] RECD: 05/29/23-914 STATUS: SONU GARCIA NUM: [id number] KASH: 05/28/23-1255 [facility] DR: QUANG CUNNINGHAM CNM ENTERED: 05/29/23-1013 SP TYPE: Pap Smr OTHR DR: ORDERED: Pap Smear Interpretation Satisfactory for evaluation. No endocervical cells seen. Negative for intraepithelial lesion or malignancy. HPV mRNA E6/E7: NOT DETECTED This assay detects E6/E7 viral messenger RNA (mRNA) from 14 high-risk HPV types (16, 18, 31, 33, 35, 39, 45, 51, 52, 56, 58, 59, 66, 68) HPV testing performed by [facility], [place], [place]. See reference laboratory portion of the EMR for entire report. Clinical Information LMP: Unknown date Previous PAP test: WNL Material Received ThinPrep-Cervical ----- ------- Signed (signature on file) Ly Collado 06/04/23 1403 ----- ------- END OF REPORT Quang Cunningham CNM LAB CYTOLOGY ORDERABLES F inal Result [facility] [address] [place] [phone] from Last 3 Months or Most Recently Relevant to Health Maintenance Insurance [place] [facility] F[place] D[facility] MEDICAID LIMITED ADULT DENTAL - HSN FULL (MEDICAID) Care Teams Radio Announcer Relationship Specialty Start Date End Date Renee Garvey MD [address] [place] [phone] PCP - General Family Medicine 09/09/18
== END 2025-07-28 14:36 | disposition home or self-care (01) ==
LOC: HO.MAMMO 14:35
PROVIDERS: Visit Provider Pediatrics
DX: Z12.31 Encounter for screening mammogram for malignant neoplasm of breast (principal)
CPT/HCPCS: 77063; 77067

== ENCOUNTER → 2025-07-28 15:30 | Outpatient (BNV) | payer MEDICAID, SELFPAY | PROVIDERS: Visit Provider Internal Medicine | DX: Z12.31 Encounter for screening mammogram for malignant neoplasm of breast (principal) | CPT/HCPCS: 77063; 77067 ==